=== PATIENT | male | born 1965 | race Caucasian/White ===

== ENCOUNTER 2018-06-12 15:09 | Inpatient (IN) | payer OTHER ==
[2018-06-12] MEDS ORDERED: NITROGLYCERIN SL TABS 0.4 MG TAB SUBLINGUAL STA ×3 (15:39)
[2018-06-12] MEDS ORDERED: ASPIRIN 81 MG PO STA (15:39)
--- NOTE | 2018-06-12 15:44 | ED ---
General Adult HPI - General Chief complaint: Chest Pain Stated complaint: Chest pain Time Seen by Provider: 06/12/18 15:23 Source: patient, RN notes reviewed Mode of arrival: ambulatory Limitations: no limitations - History of Present Illness Initial comments: Patient is a pleasant 52-year-old male presenting to the emergency Department with complaints of chest discomfort. Onset of symptoms was prior to arrival. Patient did have some very mild symptoms prior to that over the past day or so. Discomfort has somewhat improved and is currently 5/10. Discomfort was more severe earlier. Patient was sweaty earlier. Patient denies any dyspnea however states it does worsen with deep breaths. No nausea. No history of chronic chest problems. - Related Data Home Medications Medication Instructions Recorded Confirmed No Known Home Medications 06/12/18 06/12/18 Allergies Allergy/AdvReac Type Severity Reaction Status Date / Time codeine Allergy Unknown Verified 06/12/18 15:50 Review of Systems ROS Statement: Those systems with pertinent positive or pertinent negative responses have been documented in the HPI. ROS Other: All systems not noted in ROS Statement are negative. Constitutional: Denies: fever Eyes: Denies: eye pain ENT: Denies: ear pain Respiratory: Denies: cough, dyspnea Cardiovascular: Reports: chest pain Endocrine: Denies: fatigue Gastrointestinal: Denies: abdominal pain Genitourinary: Denies: dysuria Musculoskeletal: Denies: back pain Skin: Denies: rash Neurological: Denies: weakness Past Medical History Past Medical History: No Reported History History of Any Multi-Drug Resistant Organisms: None Reported Past Surgical History: No Surgical Hx Reported Past Psychological History: Depression Smoking Status: Current every day smoker Past Alcohol Use History: Rare Past Drug Use History: Marijuana General Exam Limitations: no limitations General appearance: alert, in no apparent distress Head exam: Present: atraumatic Eye exam: Present: normal appearance, PERRL ENT exam: Present: normal oropharynx Neck exam: Present: normal inspection Respiratory exam: Present: normal lung sounds bilaterally. Absent: chest wall tenderness Cardiovascular Exam: Present: regular rate, normal rhythm Expanded Peripheral pulses: 2+: Radial (R), Radial (L), Posterior Tibialis (R), Posterior Tibialis (L) GI/Abdominal exam: Present: soft. Absent: tenderness Extremities exam: Present: normal inspection. Absent: pedal edema, calf tenderness Neurological exam: Present: alert Psychiatric exam: Present: normal affect, normal mood Skin exam: Present: normal color Course Vital Signs 06/12/18 06/12/18 06/12/18 15:18 15:25 15:47 Temperature 97.6 F 97.4 F L Pulse Rate 93 82 Respiratory 20 16 Rate Blood Pressure 126/88 135/102 144/92 O2 Sat by Pulse 99 99 100 Oximetry 06/12/18 06/12/18 06/12/18 15:57 16:00 16:30 Temperature Pulse Rate 80 Respiratory 16 14 20 Rate Blood Pressure 144/92 131/85 O2 Sat by Pulse 94 L 100 Oximetry EKG Findings - EKG Comments: EKG Findings:: Normal sinus rhythm 78. OH 156. QRS 84. QT 368. QTC 419. Normal axis. Normal QRS. No acute ST change. Medical Decision Making - Medical Decision Making Patient reevaluated. Patient states medication did help with his symptoms however they're starting to return. Patient will be provided further nitroglycerin. Case was discussed in detail with Dr. Sultana, who will admit for hospital call. Patient and family are updated on results and plan. - Lab Data Result diagrams: 06/12/18 15:37 06/12/18 15:37 Lab Results 06/12/18 06/12/18 06/12/18 Range/Units 15:37 15:37 15:37 WBC 7.9 (3.8-10.6) k/uL RBC 5.38 (4.30-5.90) m/uL Hgb 16.7 (13.0-17.5) gm/dL Hct 49.2 (39.0-53.0) % MCV 91.4 (80.0-100.0) fL MCH 31.0 (25.0-35.0) pg MCHC 33.9 (31.0-37.0) g/dL RDW 12.7 (11.5-15.5) % Plt Count 204 (150-450) k/uL Neutrophils % 51 % Lymphocytes % 36 % Monocytes % 7 % Eosinophils % 4 % Basophils % 1 % Neutrophils # 4.0 (1.3-7.7) k/uL Lymphocytes # 2.8 (1.0-4.8) k/uL Monocytes # 0.5 (0-1.0) k/uL Eosinophils # 0.3 (0-0.7) k/uL Basophils # 0.1 (0-0.2) k/uL PT (9.0-12.0) sec INR (<1.2) APTT (22.0-30.0) sec D-Dimer (<0.60) mg/L FEU Sodium 138 (137-145) mmol/L Potassium 3.7 (3.5-5.1) mmol/L Chloride 103 (98-107) mmol/L Carbon Dioxide 25 (22-30) mmol/L Anion Gap 10 mmol/L BUN 17 (9-20) mg/dL Creatinine 0.93 (0.66-1.25) mg/dL Est GFR (CKD-EPI)AfAm >90 (>60 ml/min/1.73 sqM) Est GFR (CKD-EPI)NonAf >90 (>60 ml/min/1.73 sqM) Glucose 147 H (74-99) mg/dL Calcium 9.5 (8.4-10.2) mg/dL Magnesium 1.9 (1.6-2.3) mg/dL Total Bilirubin 0.7 (0.2-1.3) mg/dL AST 22 (17-59) U/L ALT 18 L (21-72) U/L Alkaline Phosphatase 71 (38-126) U/L Total Creatine Kinase 92 (55-170) U/L CK-MB (CK-2) 0.6 (0.0-2.4) ng/mL CK-MB (CK-2) Rel Index 0.7 Troponin I <0.012 (0.000-0.034) ng/mL Total Protein 7.4 (6.3-8.2) g/dL Albumin 4.4 (3.5-5.0) g/dL 06/12/18 Range/Units 15:37 WBC (3.8-10.6) k/uL RBC (4.30-5.90) m/uL Hgb (13.0-17.5) gm/dL Hct (39.0-53.0) % MCV (80.0-100.0) fL MCH (25.0-35.0) pg MCHC (31.0-37.0) g/dL RDW (11.5-15.5) % Plt Count (150-450) k/uL Neutrophils % % Lymphocytes % % Monocytes % % Eosinophils % % Basophils % % Neutrophils # (1.3-7.7) k/uL Lymphocytes # (1.0-4.8) k/uL Monocytes # (0-1.0) k/uL Eosinophils # (0-0.7) k/uL Basophils # (0-0.2) k/uL PT 10.1 (9.0-12.0) sec INR 0.9 (<1.2) APTT 22.7 (22.0-30.0) sec D-Dimer 0.35 (<0.60) mg/L FEU Sodium (137-145) mmol/L Potassium (3.5-5.1) mmol/L Chloride (98-107) mmol/L Carbon Dioxide (22-30) mmol/L Anion Gap mmol/L BUN (9-20) mg/dL Creatinine (0.66-1.25) mg/dL Est GFR (CKD-EPI)AfAm (>60 ml/min/1.73 sqM) Est GFR (CKD-EPI)NonAf (>60 ml/min/1.73 sqM) Glucose (74-99) mg/dL Calcium (8.4-10.2) mg/dL Magnesium (1.6-2.3) mg/dL Total Bilirubin (0.2-1.3) mg/dL AST (17-59) U/L ALT (21-72) U/L Alkaline Phosphatase (38-126) U/L Total Creatine Kinase (55-170) U/L CK-MB (CK-2) (0.0-2.4) ng/mL CK-MB (CK-2) Rel Index Troponin I (0.000-0.034) ng/mL Total Protein (6.3-8.2) g/dL Albumin (3.5-5.0) g/dL - Radiology Data Radiology results: image reviewed (Chest x-ray shows no acute process) Critical Care Time Critical Care Time: Yes Total Critical Care Time: 32 Disposition Clinical Impression: Unstable angina pectoris Disposition: ADMITTED IP TO THIS [facility] Is patient prescribed a controlled substance at d/c from ED?: No Referrals: None,Stated [Primary Care Provider] - 1-2 days Decision Time: 17:32
[2018-06-12 16:00] LABS: Basophils # (A) 0.1 k/uL (0-0.2); Basophils % (A) 1 %; Eosinophils # (A) 0.3 k/uL (0-0.7); Eosinophils % (A) 4 %; HCT 49.2 % (39.0-53.0); HGB 16.7 gm/dL (13.0-17.5); Lymphocytes # (A) 2.8 k/uL (1.0-4.8); Lymphocytes % (A) 36 %; MCHC 33.9 g/dL (31.0-37.0); MCV 91.4 fL (80.0-100.0); Mean Platelet Volume 7.3; Monocytes # (A) 0.5 k/uL (0-1.0); Monocytes % (A) 7 %; Neutrophils % (A) 51 %; Platelet Count 204 k/uL (150-450); RBC 5.38 m/uL (4.30-5.90); RDW 12.7 % (11.5-15.5); WBC 7.9 k/uL (3.8-10.6)
[2018-06-12 16:11] LABS: ALT 18 U/L (21-72); AST 22 U/L (17-59); Albumin 4.4 g/dL (3.5-5.0); Alkaline Phosphatase 71 U/L (38-126); Anion Gap 10 mmol/L; Blood Urea Nitrogen 17 mg/dL (9-20); Calcium 9.5 mg/dL (8.4-10.2); Carbon Dioxide 25 mmol/L (22-30); Chloride 103 mmol/L (98-107); Glucose 147 mg/dL (74-99); Magnesium 1.9 mg/dL (1.6-2.3); Potassium 3.7 mmol/L (3.5-5.1); Sodium 138 mmol/L (137-145); Total Bilirubin 0.7 mg/dL (0.2-1.3); Total Protein 7.4 g/dL (6.3-8.2)
[2018-06-12 16:15] LABS: D-Dimer 0.35 mg/L FEU (<0.60); INR 0.9 (<1.2); Partial Thromboplastin Time 22.7 sec (22.0-30.0); Prothrombin Time 10.1 sec (9.0-12.0)
[2018-06-12 16:22] LABS: Creatine Kinase 92 U/L (55-170)
[2018-06-12 16:36] LABS: Creatine Kinase MB 0.6 ng/mL (0.0-2.4); Troponin I <0.012 ng/mL (0.000-0.034)
--- NOTE | 2018-06-12 17:02 | XR ---
EXAMINATION TYPE: XR chest 2V DATE OF EXAM: 06/12/2018 COMPARISON: NONE HISTORY: Chest pain TECHNIQUE: Frontal and lateral views of the chest are obtained. FINDINGS: Heart and mediastinum are normal. Lungs are clear. Diaphragm is normal. Pulmonary vascular ity is normal. There are chest leads. IMPRESSION: Normal chest
[2018-06-12] MEDS ORDERED: HEPARIN SODIUM,PORCINE 5,000 UNIT/ML 1 ML VIAL IV ONE (17:32)
[2018-06-12] MEDS ORDERED: HEPARIN SODIUM,PORCINE 5,000 UNIT/ML 1 ML VIAL IV PRN (17:32)
[2018-06-12] MEDS ORDERED: NITROGLYCERIN SL TABS 0.4 MG TAB SUBLINGUAL PRN (17:32)
[2018-06-12] MEDS ORDERED: MORPHINE SULFATE 2 MG/ML SYRINGE IVP STA (17:36)
[2018-06-12] MEDS ORDERED: HEPARIN SOD,PORK IN 0.45% NACL 25,000 UNIT in 0.45% NACL 1 500ML.BAG IV SCH (17:45)
[2018-06-12] MEDS: NITROGLYCERIN OINT 1 INCH/GM PACKET TOPICAL SCH ×2 (17:47→19:31)
[2018-06-12 22:50] LABS: Creatine Kinase MB 10.4 ng/mL (0.0-2.4)
[2018-06-12 22:51] LABS: Troponin I 1.89 ng/mL (0.000-0.034)
[2018-06-12] MEDS: METOPROLOL TARTRATE 25 MG TAB PO SCH (23:04)
[2018-06-12] MEDS ORDERED: ALPRAZolam 0.25 MG TAB PO PRN (23:48)
[2018-06-12] MEDS ORDERED: TEMAZEPAM 15 MG CAP PO PRN (23:48)
[2018-06-13] MEDS: NITROGLYCERIN OINT 1 INCH/GM PACKET TOPICAL SCH ×2 (00:38→04:56)
[2018-06-13 03:24] LABS: Basophils # (A) 0.1 k/uL (0-0.2); Basophils % (A) 1 %; Eosinophils # (A) 0.3 k/uL (0-0.7); Eosinophils % (A) 4 %; HCT 45.2 % (39.0-53.0); HGB 14.9 gm/dL (13.0-17.5); Lymphocytes # (A) 3.3 k/uL (1.0-4.8); Lymphocytes % (A) 37 %; MCH 30.7 pg (25.0-35.0); MCV 93.3 fL (80.0-100.0); Monocytes # (A) 0.6 k/uL (0-1.0); Monocytes % (A) 7 %; Neutrophils # (A) 4.4 k/uL (1.3-7.7); Neutrophils % (A) 50 %; Platelet Count 218 k/uL (150-450); RBC 4.85 m/uL (4.30-5.90); RDW 12.9 % (11.5-15.5); WBC 8.8 k/uL (3.8-10.6)
[2018-06-13 03:33] LABS: Anion Gap 5 mmol/L; Blood Urea Nitrogen 15 mg/dL (9-20); Calcium 8.9 mg/dL (8.4-10.2); Carbon Dioxide 25 mmol/L (22-30); Chloride 107 mmol/L (98-107); Cholesterol 179 mg/dL (<200); Glucose 113 mg/dL (74-99); HDL Cholesterol 46 mg/dL (40-60); Potassium 4.1 mmol/L (3.5-5.1); Sodium 137 mmol/L (137-145)
[2018-06-13 03:56] LABS: Creatine Kinase MB 11.8 ng/mL (0.0-2.4)
[2018-06-13 03:59] LABS: Troponin I 3.94 ng/mL (0.000-0.034)
[2018-06-13 05:18] LABS: Triglycerides 108 mg/dL (<150)
[2018-06-13] MEDS ORDERED: ASPIRIN 325 MG TAB PO STA (07:37)
[2018-06-13] MEDS ORDERED: ALPRAZolam 0.25 MG TAB PO PRN (07:37)
[2018-06-13] MEDS ORDERED: NITROGLYCERIN SL TABS 0.4 MG TAB SUBLINGUAL PRN ×2 (07:37→11:02)
[2018-06-13] MEDS ORDERED: ALPRAZolam 0.5 MG TAB PO PRN (07:37)
[2018-06-13] MEDS ORDERED: ATORVASTATIN 80 MG TAB PO STA (07:37)
[2018-06-13] MEDS ORDERED: SODIUM CHLORIDE 0.9% 1,000 ML in EMPTY BAG 1 BAG IV ONE (07:37)
[2018-06-13] MEDS: NICOTINE 14MG/24HR PATCH TRANSDERM SCH (07:51)
[2018-06-13] MEDS: PANTOPRAZOLE 40 MG TABLET PO SCH (07:54)
[2018-06-13] MEDS: METOPROLOL TARTRATE 25 MG TAB PO SCH ×2 (07:54→22:43)
[2018-06-13] MEDS ORDERED: LIDOCAINE 1% INJ 10MG/ML (20 ML MDV) ONE (09:32)
[2018-06-13] MEDS ORDERED: VERAPAMIL 2.5 MG/ML 2 ML AMP ONE (09:32)
[2018-06-13] MEDS ORDERED: HEPARIN SODIUM 1,000 UN/ML (10ML VL) ONE (09:32)
[2018-06-13] MEDS ORDERED: fentaNYL (PF) 50 MCG/ML 2 ML AMP ONE (09:32)
[2018-06-13] MEDS ORDERED: fentaNYL (PF) 50 MCG/ML 2 ML AMP IVP ONE (09:55)
[2018-06-13] MEDS ORDERED: LIDOCAINE 1% (PF) 10MG/ML VIAL SQ ONE (09:56)
[2018-06-13] MEDS ORDERED: IV FLUID CONTINUATION 950 ML IV ONE (09:57)
[2018-06-13] MEDS ORDERED: VERAPAMIL SYRINGE (5 MG/10 ML) INTRAARTER ONE (09:58)
--- NOTE | 2018-06-13 10:00 | HP ---
HISTORY AND PHYSICAL DATE OF SERVICE: 06/12/2018 CHIEF COMPLAINT: Chest pain. HISTORY OF PRESENT ILLNESS: This 52-year-old gentleman with a past medical history of no significant medical issues being followed by no primary physician in the outpatient setting, was complaining of left-sided chest pain with sweating. The pain was burning in character, also. There is no radiation of the pain elsewhere and the patient came to [facility] and was admitted for further evaluation and treatment. The initial troponin was 0.012 with subsequent troponins elevated 1.890. The initial EKG showed nonspecific ST-T changes. The patient admitted for further evaluation of treatment. Continue being followed. There is no history of fever, rigors or chills. No history of headache, loss of consciousness, or seizures. PAST MEDICAL HISTORY: No history of medical illness except depression. MEDICATIONS ARE: Prior to admission include none. ALLERGIES: CODEINE. FAMILY HISTORY: No history of heart disease or strokes in the family. SOCIAL HISTORY: History of smoking, THC, rare occasional alcohol intake. REVIEW OF SYSTEMS: ENT: No diminished vision or hearing. CARDIOVASCULAR: As mentioned earlier. GI: No nausea. : No dysuria. NERVOUS SYSTEM: No numbness or weakness. ALLERGY/IMMUNOLOGY: No asthma or hayfever. MUSCULOSKELETAL: As mentioned earlier. HEMATOLOGY: No history of anemia. ENDOCRINE: No history of diabetes or hypothyroidism. CONSTITUTIONAL: As mentioned earlier. DERMATOLOGY: Negative. RHEUMATOLOGY: Negative. PSYCHIATRY: As mentioned earlier. PHYSICAL EXAMINATION: Alert and oriented x3. Pulse is 63, blood pressure 124/80, respirations 16, temperature 97.4, pulse ox 94% on room air. HEENT: Conjunctivae normal, oral mucosa moist. CARDIOVASCULAR: S1, S2, muffled. RESPIRATION: Breath sounds diminished at the bases, a few scattered rhonchi, no crackles. ABDOMEN: Soft, nontender. No mass palpable. LEGS: No edema, no swelling. NERVOUS SYSTEM: Higher functions as mentioned earlier, moves all four limbs. No focal deficits. LYMPHATICS: No ulcer, no rash, no bleeding. LABS: CBC within normal. Troponin 1.890. CK is 192. ASSESSMENT: 1. Chest pain, possible acute non ST elevation myocardial infarction. 2. Troponin 1.890. 3. Major depression. 4. History of nicotine dependence. RECOMMENDATION: In this 52-year-old gentleman who presented with multiple medical issues, at this time I recommend to continue with acute coronary syndrome protocol, Cardiology consultation, possible cardiac cath. Guarded prognosis because of multiple complex medical issues. I would also recommend smoking cessation. Follow with primary physician in the outpatient setting. Prognosis guarded. Further recommendations to follow. JUAN / JUAN CN: [id number] /
[2018-06-13] MEDS ORDERED: TICAGRELOR 90 MG TAB ONE (10:11)
[2018-06-13] MEDS ORDERED: BIVALIRUDIN 250 MG in SODIUM CHLORIDE 0.9% 40 ML IV ONE (10:12)
[2018-06-13] MEDS ORDERED: BIVALIRUDIN BOLUS 250 MG/50 ML IV ONE (10:12)
[2018-06-13] MEDS ORDERED: TICAGRELOR 90 MG TAB PO ONE (10:13)
[2018-06-13] MEDS: NITROGLYCERIN 1000MCG/10ML SYRINGE INTRACORON ONE ×2 (10:20→10:31)
[2018-06-13] MEDS ORDERED: IOPAMIDOL-370 125ML BTL INJ ONE (10:22)
--- NOTE | 2018-06-13 10:27 | CONS ---
CONSULTATION Mr. Ramon is a 52-year-old male who does not follow with a physician on a regular basis, who presented to the emergency room with symptoms of chest discomfort that occurred at rest associated with nausea. The patient is not very active physically, has a history of chronic tobacco and marijuana use. According to him, he has no prior documented history of coronary disease, although he has not seen a physician in a long time. He denies any history of significant change in his breathing. No peripheral edema. No dizziness. No palpitation. No syncope. No PND, orthopnea, or peripheral edema. His coronary risk factors are remarkable for smoking. He has no documented history of hypertension, hyperlipidemia, or diabetes mellitus. MEDICATION: At home are none. REVIEW OF SYSTEMS: RESPIRATORY system: He has no document history of obstructive lung disease. He denies any recent cough or fever. GI system: No recent GI bleeding. No peptic ulcer disease. system: No dysuria or hematuria. Nervous system: No stroke or seizure. PHYSICAL EXAMINATION: A 52-year-old male, alert, oriented, in no apparent distress. Blood pressure 106/90 with a heart rate in the 50s. HEAD: Normocephalic. Eyes sclerae anicteric. Neck good upstroke. No bruit. No jugular venous distention. Lungs clear to auscultation. HEART: Regular rhythm S1, S2. No S3. No S4. No rub. ABDOMEN: Soft, nontender. Positive bowel sounds. No organomegaly. EXTREMITIES: No edema. Intact distal pulses. LAB DATA: Lab data revealed troponin less than 0.012, 1.89, 3.9. Cholesterol 179. BUN and creatinine 15 and 0.86. Hemoglobin of 14.9. EKG revealed a sinus mechanism, normal axis, with T-wave inversion in lead 3 with QRS pattern in lead 3. Chest x-ray shows no acute infiltrate. IMPRESSION: 1. Non ST-segment elevation myocardial infarction. 2. Chronic tobacco use. 3. Chronic marijuana use. RECOMMENDATION: I have recommend proceeding with coronary angiography to assess his status and guide his treatment. The rationale behind the procedure, its risks and complications were discussed with the patient who is in full understanding and agreement. An echocardiogram with Doppler will be obtained and depending on his progress, further recommendation will be made. Thank you for this consult. We will follow with you. MMODL / IJN: [id number] /
[2018-06-13] MEDS ORDERED: IOPAMIDOL-370 100ML BTL INJ ONE (10:37)
[2018-06-13] MEDS ORDERED: IOPAMIDOL-370 50ML BTL INJ ONE (10:37)
[2018-06-13] MEDS ORDERED: MIDAZOLAM 2 MG/2 ML VIAL IV ONE (10:43)
[2018-06-13] MEDS ORDERED: MAG HYDROX/AL HYDROX/SIMETH 30 ML CUP PO PRN (11:02)
[2018-06-13] MEDS ORDERED: ATROPINE SULFATE 0.1 MG/ML 10ML SYRINGE IV PRN (11:02)
[2018-06-13] MEDS ORDERED: RX INFO: IV CONTRAST WAS GIVEN 1 EACH MISC MISCELLANE PRN (11:02)
[2018-06-13] MEDS ORDERED: SODIUM CHLORIDE 0.9% 1,000 ML IV SCH (11:15)
--- NOTE | 2018-06-13 11:36 | CC ---
CARDIAC CATHETERIZATION REPORT Mr. Ramon is a 52-year-old male who does not follow with a physician, who presented with symptoms of chest discomfort and had no significant EKG changes, but there was evidence of non ST-segment elevation myocardial infarction with abnormal troponin. In view of that, recommendation made regarding cardiac catheterization the procedures risks and complications were discussed with the patient who is in full understanding and agreement. PROCEDURE: Patient was brought to engineer geophysical laboratory in a fasting semi-sedated state after receiving fentanyl and Benadryl and achieving moderate conscious sedated state. Using Xylocaine anesthesia and Seldinger technique, a 6-Yi sheath was introduced in the right radial artery. Selective right and left coronary angiography was performed using 5- Yi 3.5 bend right and left Iban catheter, multiple views of the coronary artery including hemiaxial views were obtained. Following that, angioplasty and stenting was performed. Following that. a 5-Yi tight pigtail catheter was introduced in the left ventricle and a 30 degree ORDONEZ view of the left ventricle was obtained. Following that, the catheter were removed, images of the stented segment were performed using the guiding catheter. Subsequently, catheter and sheath were removed. Hemostasis was obtained with deployment of a TR band. There was no immediate complication. Patient was returned to his room in stable condition. FINDINGS: LEFT MAIN: This is a short size vessel, bifurcating into left circumflex, left anterior descending artery. Left main coronary artery has no evidence of high-grade stenosis. LEFT ANTERIOR DESCENDING ARTERY: This is a large-sized vessel, reaching toward the apex with a wraparound apex segment, giving rise to a diagonal branch in the mid segment. That vessel is a branching vessel, one of the branches has an area of stenosis of about 70% at the takeoff. The rest of the vessel has no high-grade stenosis. The LAD in the mid segment has an eccentric 70% stenosis prior to that. There is area of calcification with no evidence of high-grade stenosis. LEFT CIRCUMFLEX: This is a codominant vessel, giving rise to a large first obtuse marginal branch that has a 99% stenosis distally bifurcating PDA and posterolateral single branches. The rest of the vessel has no high-grade stenosis. RIGHT CORONARY ARTERY: This is a small nondominant vessel, that has no evidence of high-grade stenosis. LEFT VENTRICULOGRAM: Left ventriculogram was performed in 30 degree ORDONEZ view and revealed a normal left ventricular size. There was mild mid anterior wall hypokinesis. Ejection fraction 50%. There was no significant mitral regurgitation. HEMODYNAMICS: There was no gradient across the aortic valve. The left ventricular end- diastolic pressure was 12 mmHg. CONCLUSION: 1. Significant stenosis in the first obtuse marginal branch. 2. Significant stenosis in the mid left anterior descending artery. 3. Significant stenosis in a branching point of a diagonal branch. The vessel beyond that is small in caliber. 4. Minimally impaired left ventricular systolic function. RECOMMENDATION: In view of finding anatomy, recommend proceeding with angioplasty and stenting. The procedures risks and complication were discussed with the patient who is in full understanding and agreement. MMODL / IJN: [id number] /
--- NOTE | 2018-06-13 11:48 | PTCA ---
PERCUTANEOUSTRANS CORORONARY ANGIOGRAPHY Mr. Ramon is a 52-year-old male who does not follow with a physician on a regular basis, who presented with evidence of non ST-segment elevation myocardial infarction. He had cardiac catheterization for critical stenosis in the first obtuse marginal branch and the mid LAD. Recommendation was made regarding angioplasty and stenting. The procedures, risks and complication were discussed with the patient who is in full understanding and agreement. PROCEDURE: A 6-Danish FL 3.5 guiding catheter was introduced into the system after cannulating the left main. A 0.014 balanced medium weight J-wire was advanced, positioned in the first obtuse marginal branch. Attempt to advance the 3.0 x 18 mm Xience Yajaira stent were unsuccessful. That stent was removed and a 2.5 x 12 mm Trek balloon was advanced and one inflation at 8 atmospheres was done. Following that, the balloon was removed and the stent was advanced, deployed and post-dilated at 14 atmospheres. After the last inflation, after appropriate wait, the balloon and the guidewire were withdrawn back in the guiding catheter. Images were obtained and repeated. Those images reveal stable successful stenting. At that point, the wire was advanced into the LAD, positioned distally and a 3.0 x 12 mm Xience Yajaira stent was advanced, deployed and post-dilated to 16 atmospheres. After the last inflation, after appropriate wait, the balloon and the guidewire were withdrawn back in the guiding catheter. Images were obtained and repeated. Those images reveal stable successful stenting. At that point, the guiding catheter, the balloon and the guidewire were removed. A left ventriculogram was performed. Following that, because of symptoms of discomfort in the arm, the guiding catheter was reintroduced and images of both stents were performed and revealed no evidence of significant abnormality. At that point, the guiding catheter was removed. The sheath was removed. Hemostasis was obtained with deployment of a TR band. There was no immediate complication. Patient is returned to his room in stable condition. Of note, the patient received Angiomax per protocol as well as oral loading dose of Brilinta. He had EKG changes and chest discomfort with the inflation of the LAD, that resolved at the end of the procedure. RESULTS: 1. Successful stenting of the first obtuse marginal branch with reduction of stenosis from 99% to 0%. 2. Successful stenting of the mid LAD with reduction of stenosis from 70% to 0%. RECOMMENDATION: Patient will be continued on aspirin, Brilinta, beta blockers and statin. The importance of dual antiplatelet treatment were discussed with the patient and he was in full understanding and agreement. JUAN / LAURA: [id number] /
[2018-06-13] MEDS ORDERED: SODIUM CHLORIDE 0.9% 1,000 ML IV ONE (12:52)
[2018-06-13 13:16] VITALS: RESP 16
--- NOTE | 2018-06-13 13:42 | P.PN ---
Subjective This is a pleasant 52 years old male with no significant past medical history presents with chest pain found with elevated troponin. Patient has been already evaluated by investigator cash shortage and underwent cardiac cath showing significant stenosis in several arteries including first obtuse, mid left anterior descending artery, branching point of the gonadal branch with minimally impaired left ventricular systolic function. And the plan is for cardiac stenting. on admission his EKG showing 78 bpm normal sinus rhythm, with no significant ST-T changes. Patient was seen today in the extending to stay unit. He was chest pain-free with no dyspnea. No abdominal or urinary complaints. Objective - Vital Signs Vital signs: Vital Signs Temp 97.8 F 06/13/18 07:05 Pulse 52 L 06/13/18 08:00 Resp 18 06/13/18 08:00 BP 106/92 06/13/18 07:05 Pulse Ox 96 06/13/18 07:05 Intake & Output 06/12/18 06/13/18 06/13/18 18:59 06:59 18:59 Intake Total 123.19 535 Balance 123.19 535 Weight 62.2 kg 62.2 kg Intake: IV 535 Intake, IV Titration 123.19 Amount Heparin Sod,Pork in 0.45% 123.19 NaCl 25,000 unit In 0.45 % NaCl 1 500ml.bag @ 12 UNITS/KG/HR 15.24 mls/hr IV .Q24H [facility] Rx#: [id number] Other: Voiding Method Toilet # Voids 2 - Exam GENERAL: The patient is alert and oriented x3, not in any acute distress. Well developed, well nourished. HEENT: Pupils are round and equally reacting to light. EOMI. No scleral icterus. No conjunctival pallor. Normocephalic, atraumatic. No pharyngeal erythema. No thyromegaly. CARDIOVASCULAR: S1 and S2 present. No murmurs, rubs, or gallops. PULMONARY: Chest is clear to auscultation, no wheezing or crackles. ABDOMEN: Soft, nontender, nondistended, normoactive bowel sounds. No palpable organomegaly. MUSCULOSKELETAL: No joint swelling or deformity. EXTREMITIES: No cyanosis, clubbing, or pedal edema. NEUROLOGICAL: Gross neurological examination did not reveal any focal deficits. SKIN: No rashes. - Labs CBC & Chem 7: 06/13/18 03:09 06/13/18 03:09 Labs: Abnormal Lab Results - Last 24 Hours (Table) 06/12/18 06/12/18 06/13/18 Range/Units 15:37 21:27 00:22 APTT 33.1 H (22.0-30.0) sec Glucose 147 H (74-99) mg/dL ALT 18 L (21-72) U/L Total Creatine Kinase 192 H (55-170) U/L CK-MB (CK-2) 10.4 H (0.0-2.4) ng/mL Troponin I 1.890 H* (0.000-0.034) ng/mL 06/13/18 06/13/18 Range/Units 03:09 03:09 APTT (22.0-30.0) sec Glucose 113 H (74-99) mg/dL ALT (21-72) U/L Total Creatine Kinase 231 H (55-170) U/L CK-MB (CK-2) 11.8 H (0.0-2.4) ng/mL Troponin I 3.940 H* (0.000-0.034) ng/mL Assessment and Plan Assessment: None STEMI Status post cardiac cath showing cerebral artery stenosis, planned for stenting Asymptomatic bradycardia Plan: This is a pleasant 52 years old male who presents with chest pain found to have been STEMI, with several coronary artery diseases. Cardiology are following the patient's with cardiac catheterization. Patient already on Brilinta, and aspirin. Labs and medication were reviewed.. Continue same treatment. Continue with symptomatic treatment. Resume home medication. Monitor lytes and vitals. DVT and GI prophylaxis. Further recommendations of the clinical course of the patient Prognosis is guarded
[2018-06-13] MEDS ORDERED: HYDROmorphone 1 MG/ML 1 ML SYRINGE IVP STA (16:00)
[2018-06-13] MEDS ORDERED: HYDROmorphone 1 MG/ML 1 ML SYRINGE ONE (16:03)
--- NOTE | 2018-06-13 16:49 | CT ---
EXAMINATION TYPE: CT brain wo con DATE OF EXAM: 06/13/2018 COMPARISON: None HISTORY: Right sided headache. CT DLP: 889.1 mGycm Automated exposure control for dose reduction was used. FINDINGS: Ventricles and sulci appear normal. There is no mass effect nor midline shift. There is no sign of in tracranial hemorrhage. I see no evidence of cerebral edema. Calvarium is intact. IMPRESSION: NEGATIVE HEAD CT SCAN.
[2018-06-13] MEDS ORDERED: hydrALAZINE HCL 25 MG TAB PO STA (18:03)
[2018-06-13] MEDS ORDERED: ONDANSETRON 4 MG/2 ML VIAL IVP PRN (18:03)
[2018-06-13] MEDS ORDERED: HYDROmorphone 1 MG/ML 1 ML SYRINGE IVP PRN (18:04)
[2018-06-13] MEDS ORDERED: FAMOTIDINE 20 MG/2 ML VIAL IV SCH (21:00)
[2018-06-13] MEDS ORDERED: ZOLPIDEM 5 MG TAB PO PRN (21:00)
[2018-06-13] MEDS: FAMOTIDINE 20 MG TAB PO SCH (22:42)
[2018-06-13] MEDS: TICAGRELOR 90 MG TAB PO SCH (22:43)
--- NOTE | 2018-06-14 06:43 | ECHOF ---
Referral Reason:cp MEASUREMENTS -------- HEIGHT: 177.8 cm WEIGHT: 62.1 kg BP: 106/92 RVIDd: 2.3 cm (< 3.3) IVSd: 0.8 cm (0.6 - 1.1) LVIDd: 4.7 cm (3.9 - 5.3) LVPWd: 0.9 cm (0.6 - 1.1) IVSs: 1.1 cm LVIDs: 3.6 cm LVPWs: 1.1 cm LAESV Index (A-L): 17.91 ml/m Ao Diam: 2.7 cm (2.0 - 3.7) AV Cusp: 1.5 cm (1.5 - 2.6) LA Diam: 1.6 cm (2.7 - 3.8) EPSS: 0.4 cm MV E Jonathan: 0.64 m/s MV DecT: 253 ms MV A Jonathan: 0.73 m/s MV E/A Ratio: 0.88 MV EF SLOPE: 148.61 mm/s (70 - 150) MV EXCURSION: 2.34 cm (> 18.000) FINDINGS -------- Sinus rhythm. This was a technically good study. The left ventricular size is normal. Left ventricular wall thickness is normal. Overall left vent ricular systolic function is low-normal with, an EF between 50 - 55 %. The right ventricle is normal in size and function. Normal LA size by volume 22+/-6 ml/m2. The right atrium is normal in size. The aortic valve is trileaflet, and appears structurally normal. No aortic stenosis or regurgitation. The mitral valve is normal. There is trace to mild mitral regurgitation. Trace tricuspid regurgitation present. Right ventricular systolic pressure is normal at < 35 mmHg. The right ventricular systolic pressure, as measured by Doppler, is {RVSP}. The pulmonic valve was not well visualized. There is no pulmonic regurgitation present. The aortic root size is normal. Normal inferior vena cava with normal inspiratory collapse consistent with estimated right atrial pre ssure of 5 mmHg. There is no pericardial effusion. CONCLUSIONS -------- 1. Sinus rhythm. 2. This was a technically good study. 3. The left ventricular size is normal. 4. Left ventricular wall thickness is normal. 5. Overall left ventricular systolic function is low-normal with, an EF between 50 - 55 %. 6. Normal LA size by volume 22+/-6 ml/m2. 7. The aortic valve is trileaflet, and appears structurally normal. No aortic stenosis or regurgitati on. 8. There is trace to mild mitral regurgitation. 9. Trace tricuspid regurgitation present. 10. Right ventricular systolic pressure is normal at < 35 mmHg. 11. The pulmonic valve was not well visualized. 12. There is no pulmonic regurgitation present. 13. The aortic root size is normal. 14. There is no pericardial effusion. LEAD POURER: Gray Kaye RDCS
[2018-06-14] MEDS: PANTOPRAZOLE 40 MG TABLET PO SCH (06:59)
[2018-06-14 07:37] LABS: Mean Platelet Volume 6.8; Platelet Count 193 k/uL (150-450)
[2018-06-14 07:50] LABS: Anion Gap 7 mmol/L; Blood Urea Nitrogen 9 mg/dL (9-20); Carbon Dioxide 26 mmol/L (22-30); Chloride 108 mmol/L (98-107); Glucose 91 mg/dL (74-99); Sodium 141 mmol/L (137-145)
[2018-06-14] MEDS: METOPROLOL TARTRATE 25 MG TAB PO SCH (08:46)
[2018-06-14] MEDS: FAMOTIDINE 20 MG TAB PO SCH (08:46)
[2018-06-14] MEDS: TICAGRELOR 90 MG TAB PO SCH (08:47)
[2018-06-14] MEDS: NICOTINE 14MG/24HR PATCH TRANSDERM SCH (08:47)
[2018-06-14] MEDS ORDERED: ASPIRIN 81 MG PO SCH (09:00)
[2018-06-14] MEDS ORDERED: ASPIRIN 325 MG TAB PO SCH (09:00)
--- NOTE | 2018-06-14 09:30 | PN ---
PROGRESS NOTE Mr. Ramon is a 52-year-old male who presented with symptoms of chest discomfort and evidence of non ST-segment elevation myocardial infarction underwent stenting of his LAD as well as his obtuse marginal branch. He is doing well this morning, ambulating without difficulty. Denying any chest pain. No dizziness. No palpitation. He had some headache that is improving. He continued be on aspirin once a day, Lipitor 80 mg daily, metoprolol tartrate 25 mg twice a day, Brilinta 90 mg twice a day. PHYSICAL EXAMINATION: Blood pressure 123/70 with the heart rate in the 70s. LUNGS: Clear. HEART: Regular rate and rhythm S1, S2. No S3. No rub. ABDOMEN: Soft, nontender. EXTREMITIES: No edema. Right radial pulse intact. LAB DATA: Lab data revealed BUN and creatinine 9 and 0.72. Potassium 4.0. Platelet count of 193. IMPRESSION: 1. Status post stenting of the left anterior descending artery and the obtuse marginal branch. 2. Non ST-segment elevation myocardial infarction. 3. History of chronic tobacco use. RECOMMENDATION: Patient will be discharged home today and followed as an outpatient. The importance of smoking cessation was discussed with the patient. MMODL / IJN: [id number] /
[2018-06-14 12:57] VITALS: BP 117/68; PULSE 69; TEMP 97.6
[2018-06-14 14:48] VITALS: BMI 19.6
[2018-06-14] MEDS ORDERED: ATORVASTATIN 80 MG TAB PO SCH (21:00)
== END 2018-06-14 15:09 | disposition home or self-care (01) | DRG 247 ==
LOC: EC 15:09 → 1SOBS 17:34 → 3SCARD 06-13 10:19 → OBSVTOIN 06-13 14:01 → 3SCARD 06-13 15:53
PROVIDERS: ADMIT Internal Medicine; ATTEND Internal Medicine
PROC: B2151ZZ Fluoroscopy of Left Heart using Low Osmolar Contrast (ICD-10-PCS; 2018-06-13)
PROC: 027034Z Dilation of Coronary Artery, One Artery with Drug-eluting Intraluminal Device, Percutaneous Approach (ICD-10-PCS; principal; 2018-06-13 09:25)
PROC: 4A023N7 Measurement of Cardiac Sampling and Pressure, Left Heart, Percutaneous Approach (ICD-10-PCS; 2018-06-13 09:25)
PROC: B2111ZZ Fluoroscopy of Multiple Coronary Arteries using Low Osmolar Contrast (ICD-10-PCS; 2018-06-13 09:25)
DX: I21.4 Non-ST elevation (NSTEMI) myocardial infarction (principal); F32.9 Major depressive disorder, single episode, unspecified; F17.200 Nicotine dependence, unspecified, uncomplicated; I25.110 Atherosclerotic heart disease of native coronary artery with unstable angina pectoris; Z88.5 Allergy status to narcotic agent
CPT/HCPCS: 36415; 70450; 71046; 80048; 80053; 82465; 82550; 82553; 83718; 83735; 84478; 84484; 85025; 85049; 85347; 85379; 85610; 85730; 93005; 93306; 93458; 96374; 96375; 99291; C1874

== ENCOUNTER → 2018-07-12 | Outpatient (CLI) | payer OTHER ==
[2018-07-12 11:40] LABS: Albumin 4.6 g/dL (3.80-4.90); Albumin/Globulin Ratio 2.42 (1.20-2.10); Anion Gap 7.1 mmol/L (4.00-12.00); Calcium 9.4 mg/dL (8.7-10.3); Carbon Dioxide 27.9 mmol/L (21.6-31.8); Globulin 1.9 g/dL (1.6-3.3); LDL Cholesterol,Calculated 42.8 mg/dL (0.0-131.0); Potassium 4.2 mmol/L (3.5-5.5); Total Bilirubin 0.6 mg/dL (0.3-1.2); Total Protein 6.5 g/dL (6.2-8.2); VLDL Calculation 14.2 mg/dL (5.00-40.00)
== END ==
LOC: LABWHC1 07:06
PROVIDERS: ATTEND Internal Medicine Interventional Cardiology
DX: E78.2 Mixed hyperlipidemia (principal)
CPT/HCPCS: 36415; 80053; 80061

== ENCOUNTER → 2019-04-28 | Outpatient (CLI) | payer OTHER ==
[2019-04-28 07:59] LABS: HCT 46.4 % (39.0-53.0); HGB 16.3 gm/dL (13.0-17.5); MCH 32.5 pg (25.0-35.0); MCHC 35.1 g/dL (31.0-37.0); MCV 92.7 fL (80.0-100.0); Mean Platelet Volume 6.3; Platelet Count 215 k/uL (150-450); RDW 12.4 % (11.5-15.5); WBC 6.4 k/uL (3.8-10.6)
[2019-04-28 08:26] LABS: ALT 33 U/L (21-72); AST 27 U/L (17-59); African American GFR (CKD) >90 (>60 ml/min/1.73 sqM); Albumin 4.3 g/dL (3.5-5.0); Alkaline Phosphatase 77 U/L (38-126); Anion Gap 10 mmol/L; Blood Urea Nitrogen 15 mg/dL (9-20); Calcium 9.4 mg/dL (8.4-10.2); Carbon Dioxide 25 mmol/L (22-30); Chloride 106 mmol/L (98-107); Glucose 109 mg/dL (74-99); Potassium 4.3 mmol/L (3.5-5.1); Sodium 141 mmol/L (137-145); Total Bilirubin 0.8 mg/dL (0.2-1.3); Total Protein 7.2 g/dL (6.3-8.2)
== END | disposition home or self-care (01) ==
LOC: LABPAT 07:24
PROVIDERS: ATTEND Internal Medicine Interventional Cardiology
DX: Z01.812 Encounter for preprocedural laboratory examination (principal); I25.10 Atherosclerotic heart disease of native coronary artery without angina pectoris
CPT/HCPCS: 80053; 85027

== ENCOUNTER → 2019-04-28 | Outpatient (CLI) | payer OTHER ==
[2019-04-28 11:44] LABS: Chol/HDL Ratio 2.6; LDL Cholesterol,Calculated 45.4 mg/dL (0.0-131.0); VLDL Calculation 18.6 mg/dL (5.00-40.00)
== END | disposition home or self-care (01) ==
LOC: LABWHC1 07:23
PROVIDERS: ATTEND Internal Medicine Interventional Cardiology
DX: E78.2 Mixed hyperlipidemia (principal)
CPT/HCPCS: 36415; 80061

== ENCOUNTER → 2019-05-04 | Day surgery (SDC) | payer OTHER ==
[2019-05-02 10:42] VITALS: BMI 20.3
[~2019-05-04] MED LIST: ALPRAZolam 0.25 MG TAB PO PRN; ALPRAZolam 0.5 MG TAB PO PRN; ASPIRIN 325 MG TAB PO STA; ASPIRIN 81 MG PO SCH; ATORVASTATIN 80 MG TAB PO SCH; ATORVASTATIN 80 MG TAB PO STA; HEPARIN SODIUM 1,000 UN/ML (10ML VL) ONE; IOPAMIDOL-370 125ML BTL INJ ONE; LIDOCAINE 1% INJ 10MG/ML (20 ML MDV) ONE; LIDOCAINE 1% INJ 10MG/ML (20 ML MDV) SQ ONE; METOPROLOL TARTRATE 25 MG TAB PO SCH; NITROGLYCERIN 1000MCG/10ML SYRINGE INTRACORON ONE; NITROGLYCERIN SL TABS 0.4 MG TAB SUBLINGUAL PRN; RX INFO: IV CONTRAST WAS GIVEN 1 EACH MISC MISCELLANE PRN; SODIUM CHLORIDE 0.9% 1,000 ML IV SCH; SODIUM CHLORIDE 0.9% 1,000 ML in EMPTY BAG 1 BAG IV ONE; TICAGRELOR 90 MG TAB PO SCH; VERAPAMIL 2.5 MG/ML 2 ML AMP ONE; fentaNYL (PF) 50 MCG/ML 2 ML AMP IVP ONE; fentaNYL (PF) 50 MCG/ML 2 ML AMP ONE
[2019-05-04 06:56] VITALS: RESP 18; TEMP 97.7
[2019-05-04 12:26] VITALS: PULSE 48
[2019-05-04 14:16] VITALS: BP 144/75
--- NOTE | 2019-05-04 14:34 | CC ---
CARDIAC CATHETERIZATION REPORT Mr. Ramon is a 53-year-old male with known history of coronary artery disease who in June 2018, underwent stenting of the LAD and left circumflex, presented with some symptoms of chest discomfort on and off. In view of that, recommendation made regarding cardiac catheterization. The procedures, risks, and complications were discussed with the patient who is in full understanding and agreement. PROCEDURE: Patient was brought to cath lab nurse in a fasting semi-sedated state after receiving fentanyl and Benadryl and achieving moderate conscious sedated state. Using Xylocaine anesthesia and Seldinger technique, a 6-Israeli sheath was introduced in the right radial artery with some difficulty. There was no good blood flow return. At that point, the catheter were removed and hemostasis was obtained with deployment of TR band and using Xylocaine anesthesia and Seldinger technique, a 6-Israeli sheath was introduced in the right femoral artery. Selective right and left coronary angiography performed using 6-Israeli, 4 bend, right and left Iban catheter, multiple views of the coronary artery including hemiaxial views obtained. Following that the instantaneous flow reserve was measured. Following that 6-Israeli tight pigtail catheter was introduced into the left ventricle and pressures were calculated. Following that, catheter and sheath were removed. Hemostasis was obtained with deployment of an Angio-Seal. There was no immediate complication. Patient is returned to his room in stable condition. Of note, the patient received 5000 units of intravenous heparin. FINDINGS: 1. LEFT MAIN: This is a short size vessel bifurcating into left circumflex, left anterior descending artery. Left main coronary artery has no evidence of high- grade stenosis. 2. LEFT ANTERIOR DESCENDING ARTERY: This is a large-sized vessel, reaching toward the apex with a wraparound apex segment. The stented segment in the mid LAD is patent with no evidence of significant restenosis. Proximally at the takeoff of the first diagonal branch, there is an eccentric 40% plaque. The first diagonal branch is small in caliber and has two branches, one of the branches have 80% stenosis, but the branch is small in caliber. 3. LEFT CIRCUMFLEX: This is a large dominant vessel, giving rise to two obtuse marginal branches and distally giving rise to a PDA. The first obtuse marginal branch is a stented branch. That branch in the proximal area has a 50% plaque. The rest of the vessel has no high-grade stenosis. 4. RIGHT CORONARY ARTERY: This is a small nondominant vessel that has no evidence of high-grade stenosis. 5. LEFT VENTRICULOGRAM: Left ventriculogram was not performed. 6. HEMODYNAMICS: There was no gradient across the aortic valve. The left ventricular end-diastolic pressure was 8 to 10 mmHg. 7. IFR TO THE IS THE LEFT CIRCUMFLEX: Using a 6-Israeli FL4 guiding catheter was 1.0, and IFR to the LAD was 0.96. CONCLUSION: 1. Moderate disease in the left circumflex and the left anterior descending artery with normal IFR on both vessels to nondominant right. 2. Significant disease in the first small diagonal branch, unchanged since 2018. RECOMMENDATION: In view of finding anatomy, I recommend continue medical therapy with aggressive coronary risk modifications being initiated. Those findings and recommendations were discussed with the patient who is in full understanding and agreement. Duration of procedure is 54 minutes. JUAN / JUAN CN: [id number] /
== END | disposition home or self-care (01) ==
LOC: CATHCVL 06:27
PROVIDERS: ATTEND Internal Medicine Interventional Cardiology
DX: I25.110 Atherosclerotic heart disease of native coronary artery with unstable angina pectoris (principal); I10 Essential (primary) hypertension; F17.210 Nicotine dependence, cigarettes, uncomplicated; E78.2 Mixed hyperlipidemia; E78.00 Pure hypercholesterolemia, unspecified; I25.2 Old myocardial infarction; Z95.5 Presence of coronary angioplasty implant and graft; Z79.02 Long term (current) use of antithrombotics/antiplatelets; Z79.82 Long term (current) use of aspirin; Z79.899 Other long term (current) drug therapy; Z88.5 Allergy status to narcotic agent
CPT/HCPCS: 93571; 93458; C1760; C1887; C1894; C1769; J2001; J3010; Q9967

== ENCOUNTER 2020-10-17 13:33 | Inpatient (IN) | payer OTHER ==
--- NOTE | 2020-10-17 13:38 | ED ---
General Adult HPI - General Source: patient, RN notes reviewed Mode of arrival: ambulatory Limitations: no limitations <Ruslan Willis - Last Filed: 10/17/20 13:36> <Kannan Mitchell - Last Filed: 10/17/20 16:27> - General Stated complaint: Chest Pain Time Seen by Provider: 10/17/20 13:36 - History of Present Illness Initial comments: This a 55-year-old male presents emergency Department with chief complaint of chest pain. States he states he has left-sided chest pain started this morning he states that he is attempting to drive earlier which worsen came home took a nitro alleviated some of his pain he states he lay down and got back up his the pain worsened shortly after. Patient had a myocardial infarction in 2018 with stent placement. Patient is a daily smoker. Patient does take Lipitor, Brillinta, metoprolol, aspirin. (Ruslan Willis) This a 55-year-old male who presents to the emergency department complaining of chest pain that radiates down his left arm. Patient also states he short of breath. Patient states it started at 8:00 this morning and hasn't let up. Patient states she's had 2 stents in the past. He is a smoker and continues to smoke. Patient denies diabetes. Patient states he hasn't been feeling well for the last day and he did get exposed to cold from his daughter. Patient denies any fever or chills. Patient denies any palpitations. Patient denies abdominal pain patient denies nausea vomiting or diarrhea. Patient denies any diaphoretic episodes. Patient denies headache patient denies numbness weakness. (Kannan Mitchell) - Related Data Home Medications Medication Instructions Recorded Confirmed Isosorbide Mononitrate ER [Imdur] 30 mg PO DAILY 10/17/20 10/17/20 Nitroglycerin Sl Tabs [Nitrostat] 0.4 mg SL Q5M PRN 10/17/20 10/17/20 QUEtiapine [SEROquel] 50 mg PO HS 10/17/20 10/17/20 Previous Rx's Medication Instructions Recorded Aspirin 81 mg PO DAILY chew 06/14/18 Atorvastatin [Lipitor] 80 mg PO HS #90 tab 06/14/18 Metoprolol Tartrate [Lopressor] 25 mg PO BID #180 tab 06/14/18 Allergies Allergy/AdvReac Type Severity Reaction Status Date / Time codeine Allergy Rash/Hives Verified 10/17/20 16:18 Review of Systems ROS Other: All systems not noted in ROS Statement are negative. <Ruslan Willis - Last Filed: 10/17/20 13:36> ROS Other: All systems not noted in ROS Statement are negative. <Kannan Mitchell - Last Filed: 10/17/20 16:27> ROS Statement: Those systems with pertinent positive or pertinent negative responses have been documented in the HPI. Past Medical History Past Medical History: Hyperlipidemia, Hypertension, Myocardial Infarction (IA), Osteoarthritis (OA) Last Myocardial Infarction Date:: 06/22/18 History of Any Multi-Drug Resistant Organisms: None Reported Past Surgical History: Heart Catheterization With Stent, Tonsillectomy Past Anesthesia/Blood Transfusion Reactions: No Reported Reaction Date of Last Stent Placement:: 06/22/18 Past Psychological History: Depression Past Alcohol Use History: None Reported Additional Past Alcohol Use History / Comment(s): smokes 1/2 ppd since age 11 Past Drug Use History: Marijuana Additional Drug Use History / Comment(s): uses marijuana daily -informed to refrain from use for at least 24 hours prior to procedure - Past Family History Father Family Medical History: Cancer <Ruslan Willis - Last Filed: 10/17/20 13:36> General Exam <Kannan Mitchell - Last Filed: 10/17/20 16:27> - General Exam Comments Initial Comments: GENERAL: Patient is well-developed and well-nourished. Patient is nontoxic and well- hydrated and is in mild distress. ENT: Neck is soft and supple. No significant lymphadenopathy is noted. Oropharynx is clear. Moist mucous membranes. Neck has full range of motion without eliciting any pain. EYES: The sclera were anicteric and conjunctiva were pink and moist. Extraocular movements were intact and pupils were equal round and reactive to light. Eyelids were unremarkable. PULMONARY: Unlabored respirations. Good breath sounds bilaterally. No audible rales rhonchi or wheezing was noted. CARDIOVASCULAR: There is a regular rate and rhythm without any murmurs gallops or rubs. ABDOMEN: Soft and nontender with normal bowel sounds. SKIN: Skin is clear with no lesions or rashes and otherwise unremarkable. NEUROLOGIC: Patient is alert and oriented x3. Cranial nerves II through XII are grossly intact. Motor and sensory are also intact. Normal speech, volume and content. Symmetrical smile. MUSCULOSKELETAL: Normal extremities with adequate strength and full range of motion. No lower extremity swelling or edema. No calf tenderness. LYMPHATICS: No significant lymphadenopathy is noted PSYCHIATRIC: Normal psychiatric evaluation. (Kannan Mitchell) Course Vital Signs 10/17/20 13:36 Temperature 97.8 F Pulse Rate 63 Respiratory 18 Rate Blood Pressure 185/115 O2 Sat by Pulse 97 Oximetry Medical Decision Making - Lab Data Result diagrams: 10/17/20 13:49 10/17/20 13:49 <Kannan Mitchell - Last Filed: 10/17/20 16:27> - Medical Decision Making EKG shows sinus bradycardia 55 bpm MI interval 162 QTC is 390 QTC is 373. Patient's EKG shows no ST segment elevation or depression. Patient does have Q waves in V1 and V2. Patient's chest x-ray shows no acute abnormality. Patient's troponin was mildly elevated. I started the patient on heparin. I spoke with Dr. Steiner and he agreed to admit the patient admitted the patient wrote admitting orders. I consulted cardiology as well. Repeat EKG was done and showed sinus bradycardia at 47 bpm MI interval is 160 QRS is 84 QT interval 418 QTC is 369. Patient's EKG shows some peaked T waves with slight ST segment elevation in V1 and V2 and some biphasic T waves in 3 and aVF (Kannan Mitchell) - Lab Data Lab Results 10/17/20 10/17/20 10/17/20 Range/Units 13:49 13:49 13:49 WBC 8.5 (3.8-10.6) k/uL RBC 5.24 (4.30-5.90) m/uL Hgb 16.6 (13.0-17.5) gm/dL Hct 47.4 (39.0-53.0) % MCV 90.5 (80.0-100.0) fL MCH 31.6 (25.0-35.0) pg MCHC 35.0 (31.0-37.0) g/dL RDW 12.5 (11.5-15.5) % Plt Count 204 (150-450) k/uL MPV 7.4 Neutrophils % 59 % Lymphocytes % 28 % Monocytes % 7 % Eosinophils % 4 % Basophils % 1 % Neutrophils # 5.0 (1.3-7.7) k/uL Lymphocytes # 2.3 (1.0-4.8) k/uL Monocytes # 0.6 (0-1.0) k/uL Eosinophils # 0.3 (0-0.7) k/uL Basophils # 0.1 (0-0.2) k/uL PT 9.8 (9.0-12.0) sec INR 0.9 (<1.2) APTT 23.4 (22.0-30.0) sec Sodium 135 L (137-145) mmol/L Potassium 4.3 (3.5-5.1) mmol/L Chloride 99 (98-107) mmol/L Carbon Dioxide 29 (22-30) mmol/L Anion Gap 7 mmol/L BUN 9 (9-20) mg/dL Creatinine 0.86 (0.66-1.25) mg/dL Est GFR (CKD-EPI)AfAm >90 (>60 ml/min/1.73 sqM) Est GFR (CKD-EPI)NonAf >90 (>60 ml/min/1.73 sqM) Glucose 112 H (74-99) mg/dL Calcium 10.2 (8.4-10.2) mg/dL Magnesium 1.9 (1.6-2.3) mg/dL Total Bilirubin 0.9 (0.2-1.3) mg/dL AST 27 (17-59) U/L ALT 15 (4-49) U/L Alkaline Phosphatase 87 (38-126) U/L Troponin I (0.000-0.034) ng/mL Total Protein 7.1 (6.3-8.2) g/dL Albumin 4.5 (3.5-5.0) g/dL Lipase 792 H (23-300) U/L 10/17/20 Range/Units 13:49 WBC (3.8-10.6) k/uL RBC (4.30-5.90) m/uL Hgb (13.0-17.5) gm/dL Hct (39.0-53.0) % MCV (80.0-100.0) fL MCH (25.0-35.0) pg MCHC (31.0-37.0) g/dL RDW (11.5-15.5) % Plt Count (150-450) k/uL MPV Neutrophils % % Lymphocytes % % Monocytes % % Eosinophils % % Basophils % % Neutrophils # (1.3-7.7) k/uL Lymphocytes # (1.0-4.8) k/uL Monocytes # (0-1.0) k/uL Eosinophils # (0-0.7) k/uL Basophils # (0-0.2) k/uL PT (9.0-12.0) sec INR (<1.2) APTT (22.0-30.0) sec Sodium (137-145) mmol/L Potassium (3.5-5.1) mmol/L Chloride (98-107) mmol/L Carbon Dioxide (22-30) mmol/L Anion Gap mmol/L BUN (9-20) mg/dL Creatinine (0.66-1.25) mg/dL Est GFR (CKD-EPI)AfAm (>60 ml/min/1.73 sqM) Est GFR (CKD-EPI)NonAf (>60 ml/min/1.73 sqM) Glucose (74-99) mg/dL Calcium (8.4-10.2) mg/dL Magnesium (1.6-2.3) mg/dL Total Bilirubin (0.2-1.3) mg/dL AST (17-59) U/L ALT (4-49) U/L Alkaline Phosphatase (38-126) U/L Troponin I 0.253 H* (0.000-0.034) ng/mL Total Protein (6.3-8.2) g/dL Albumin (3.5-5.0) g/dL Lipase (23-300) U/L Critical Care Time Critical Care Time: Yes Total Critical Care Time: 35 <Kannan Mitchell - Last Filed: 10/17/20 16:27> Disposition <Ruslan Willis - Last Filed: 10/17/20 13:36> Time of Disposition: 15:32 <Kannan Mitchell - Last Filed: 10/17/20 16:27> Clinical Impression: Acute non-ST elevation myocardial infarction (NSTEMI), Elevated lipase Disposition: ADMITTED IP TO THIS HOSP
--- NOTE | 2020-10-17 14:15 | XR ---
EXAMINATION TYPE: XR chest 2V DATE OF EXAM: 10/17/2020 COMPARISON: Chest x-ray June 12, 2018 HISTORY: Chest pain. TECHNIQUE: Frontal and lateral views of the chest are obtained. FINDINGS: There is mild chronic parenchymal change without suspicious focal air space opacity, pleur al effusion, or pneumothorax seen. The cardiac silhouette size remains within normal limits. The o sseous structures are intact. Overlying EKG leads redemonstrated. IMPRESSION: No acute cardiopulmonary process.
[2020-10-17 14:30] LABS: Basophils # (A) 0.1 k/uL (0-0.2); Basophils % (A) 1 %; Eosinophils # (A) 0.3 k/uL (0-0.7); Eosinophils % (A) 4 %; HCT 47.4 % (39.0-53.0); HGB 16.6 gm/dL (13.0-17.5); Lymphocytes # (A) 2.3 k/uL (1.0-4.8); Lymphocytes % (A) 28 %; MCH 31.6 pg (25.0-35.0); MCV 90.5 fL (80.0-100.0); Mean Platelet Volume 7.4; Monocytes # (A) 0.6 k/uL (0-1.0); Monocytes % (A) 7 %; Neutrophils % (A) 59 %; Platelet Count 204 k/uL (150-450); RBC 5.24 m/uL (4.30-5.90); RDW 12.5 % (11.5-15.5); WBC 8.5 k/uL (3.8-10.6)
[2020-10-17 14:41] LABS: ALT 15 U/L (4-49); AST 27 U/L (17-59); African American GFR (CKD) >90 (>60 ml/min/1.73 sqM); Albumin 4.5 g/dL (3.5-5.0); Alkaline Phosphatase 87 U/L (38-126); Anion Gap 7 mmol/L; Blood Urea Nitrogen 9 mg/dL (9-20); Calcium 10.2 mg/dL (8.4-10.2); Carbon Dioxide 29 mmol/L (22-30); Chloride 99 mmol/L (98-107); Glucose 112 mg/dL (74-99); INR 0.9 (<1.2); Lipase 792 U/L (23-300); Magnesium 1.9 mg/dL (1.6-2.3); Non-African American GFR(CKD) >90 (>60 ml/min/1.73 sqM); Partial Thromboplastin Time 23.4 sec (22.0-30.0); Potassium 4.3 mmol/L (3.5-5.1); Prothrombin Time 9.8 sec (9.0-12.0); Sodium 135 mmol/L (137-145); Total Bilirubin 0.9 mg/dL (0.2-1.3); Total Protein 7.1 g/dL (6.3-8.2)
[2020-10-17] MEDS ORDERED: HEPARIN SODIUM,PORCINE 5,000 UNIT/ML 1 ML VIAL IV STA (15:12)
[2020-10-17] MEDS ORDERED: HEPARIN SOD,PORK IN 0.45% NACL 25,000 UNIT in 0.45% NACL 1 250ML.BAG IV SCH (15:15)
[2020-10-17] MEDS ORDERED: NITROGLYCERIN OINT 1 INCH/GM PACKET TOPICAL STA (15:30)
[2020-10-17] MEDS ORDERED: ASPIRIN 81 MG PO STA (15:30)
[2020-10-17] MEDS ORDERED: HEPARIN SODIUM,PORCINE 10,000 UNIT/ML 1 ML VIAL IV STA (15:43)
[2020-10-17] MEDS ORDERED: MORPHINE SULFATE 4 MG/ML SYRINGE IVP STA (17:13)
[2020-10-17] MEDS: NITROGLYCERIN SL TABS 0.4 MG TAB SUBLINGUAL PRN ×3 (18:37→18:48)
[2020-10-17] MEDS: NITROGLYCERIN OINT 1 INCH/GM PACKET TOPICAL SCH (18:44)
[2020-10-17] MEDS: ATORVASTATIN 80 MG TAB PO SCH (22:11)
[2020-10-17] MEDS: METOPROLOL TARTRATE 25 MG TAB PO SCH (22:11)
[2020-10-17] MEDS: QUEtiapine 50 MG TAB PO SCH (22:12)
[2020-10-18] MEDS: NITROGLYCERIN OINT 1 INCH/GM PACKET TOPICAL SCH ×2 (00:13→06:00)
[2020-10-18] MEDS ORDERED: HEPARIN SODIUM 1,000 UN/ML (10ML VL) IV PRN (01:00)
[2020-10-18] MEDS ORDERED: SODIUM CHLORIDE 0.9% 1,000 ML in EMPTY BAG 1 BAG IV ONE (07:53)
[2020-10-18] MEDS ORDERED: ATORVASTATIN 80 MG TAB PO STA (07:53)
[2020-10-18] MEDS ORDERED: NITROGLYCERIN SL TABS 0.4 MG TAB SUBLINGUAL PRN ×2 (07:53→11:25)
[2020-10-18] MEDS ORDERED: ALPRAZolam 0.5 MG TAB PO PRN (07:53)
[2020-10-18] MEDS ORDERED: ASPIRIN 325 MG TAB PO STA (07:53)
[2020-10-18] MEDS ORDERED: ALPRAZolam 0.25 MG TAB PO PRN (07:53)
[2020-10-18 08:41] LABS: Cholesterol 119 mg/dL (<200); HDL Cholesterol 54 mg/dL (40-60); LDL Cholesterol,Calculated 52 mg/dL (0-99); Triglycerides 66 mg/dL (<150)
--- NOTE | 2020-10-18 08:48 | ECHOF ---
Referral Reason:new chest pain, elevated troponin MEASUREMENTS -------- HEIGHT: 177.8 cm WEIGHT: 61.7 kg BP: 101/59 RVIDd: 3.5 cm (< 3.3) IVSd: 1.1 cm (0.6 - 1.1) LVIDd: 3.7 cm (3.9 - 5.3) LVPWd: 1.0 cm (0.6 - 1.1) IVSs: 1.4 cm LVIDs: 2.3 cm LVPWs: 1.3 cm LA Diam: 1.9 cm (2.7 - 3.8) Ao Diam: 3.0 cm (2.0 - 3.7) AV Cusp: 1.6 cm (1.5 - 2.6) MV EXCURSION: 20.043 mm (> 18.000) MV EF SLOPE: 110 mm/s (70 - 150) EPSS: 0.3 cm MV E Jonathan: 0.86 m/s MV DecT: 292 ms MV A Jonathan: 0.53 m/s MV E/A Ratio: 1.60 FINDINGS -------- Sinus rhythm. This was a technically good study. The left ventricular size is normal. There is borderline concentric left ventricular hypertrophy. Overall left ventricular systolic function is mildly impaired with, an EF between 45 - 50 %. Mid i nferoseptal LV wall motion is akinetic. Apical septum LV wall motion is akinetic. The right ventricle is mildly enlarged. The left atrium is normal in size. The right atrium is normal in size. Interatrial and interventricular septum intact. The aortic valve is trileaflet, and appears structurally normal. No aortic stenosis or regurgitation. The mitral valve is normal. Trace tricuspid regurgitation present. The right ventricular systolic pressure, as measured by Dopp ler, is {RVSP}. There is no pulmonic regurgitation present. The aortic root size is normal. Normal inferior vena cava with normal inspiratory collapse consistent with estimated right atrial pre ssure of 5 mmHg. There is no pericardial effusion. CONCLUSIONS -------- 1. The left ventricular size is normal. 2. There is borderline concentric left ventricular hypertrophy. 3. Overall left ventricular systolic function is mildly impaired with, an EF between 45 - 50 %. 4. Mid inferoseptal LV wall motion is akinetic. 5. Apical septum LV wall motion is akinetic. 6. The right ventricle is mildly enlarged. 7. There is no pericardial effusion. QUALITY CONTROL TECH RAW MATERIALS: Tri Rojas RDCS
[2020-10-18] MEDS: METOPROLOL TARTRATE 25 MG TAB PO SCH ×2 (08:50→20:55)
[2020-10-18] MEDS ORDERED: ISOSORBIDE MONONITRATE ER 30 MG TAB.ER.24H PO SCH (09:00)
[2020-10-18] MEDS ORDERED: ASPIRIN 325 MG TAB PO SCH (09:00)
--- NOTE | 2020-10-18 09:20 | P.CRDCN ---
History of Present Illness History of present illness: HISTORY OF PRESENTING ILLNESS This is a pleasant 55-year-old male past medical history significant for Dyslipidemia, nicotine dependence, Coronary artery disease, NSTEMI in 2018 s/p PCI. He follows in the office with Dr. Valderrama. We have been asked to see in consultation for chest pain and elevated troponin . Patient is seen and examined at bedside, in no acute distress . States he states he has left-sided chest pain started [employer] yesterday before 8:00am. At home he took a nitro alleviated some of his pain he states he lay down, slept for a couple hours. Woke up around 12:00 the pain worsened shortly after. Describes the pain as burning, radiating to his left arm. Associated symptoms include shortness of breath. Denies palpitations, diaphoresis, or nausea. Alleviating symptoms is when he walks around and took the nitro. He states the pain was constant and had no aggravating symptoms. He is a daily smoker, smokes 4-5 cigarrettes a day. Denies history of diabetes or stroke. Current home cardiac medications include aspirin, lipitor and metoprolol tartrate. Laboratory data reviewed, troponin 0.25-->3.3-->16.8, sodium 135, potassium 4.3, serum creatinine 0.86, BUN 9, magnesium 1.9, liver enzymes within normal limits, lipase elevated at 792, COvid-19 negative Vital signs stable BP 110/65 HR 61, afebrile, 97% on room air. DIAGNOSTICS EKG reveals sinus mechanism HR [address] elevation in leads V1 and V2, peaked T waves in anterior leads Prior EKG in 2018 sinus mechanism with sinus arrhythmia T wave inversion in lead III. Last Cardiac Catheterization 04/2019- revealed moderate disease in the left circumflex and LAD with normal IFR on both vessels to nondominant right. Significant disease in the first small diagnoal branch, unchanged since 2018. Cardiac catheterizaiton in 06/2018 with successful stenting of the first obtuse marginal branch and mid LAD Telemetry tracings indicate sinus mechanism HR 60-70s Chest xray no acute cardiopulmonary process REVIEW OF SYSTEMS At the time of my exam: CONSTITUTIONAL: Denies fever or chills. CARDIOVASCULAR: + chest pain, +shortness of breath, Denies orthopnea, PND or palpitations. RESPIRATORY: Denies cough. GASTROINTESTINAL: Denies abdominal pain, diarrhea, constipation, nausea or vomiting. MUSCULOSKELETAL: Denies myalgias. NEUROLOGIC: +numbness/tingling to left arm. Denies headacbe or weakness. ENDOCRINE: Denies fatigue, weight change, polydipsia or polyurina. GENITOURINARY: Denies burning, hematuria or urgency with micturation. HEMATOLOGIC: Denies history of anemia or bleeding. PHYSICAL EXAMINATION CONSTITUTIONAL: No apparent distress. HEENT: Head is normocephalic. Pupils are equal, round. Sclerae anicteric. Mucous membranes of the mouth are moist. No JVD. No carotid bruit. CHEST EXAMINATION: Lungs are clear to auscultation. No chest wall tenderness is noted on palpation or with deep breathing. HEART EXAMINATION: Regular rate and rhythm. S1, S2 heard. No murmurs, gallops or rub. ABDOMEN: Soft, nontender. Positive bowel sounds. EXTREMITIES: 2+ peripheral pulses, no lower extremity edema and no calf tenderness. SKIN: intact NEUROLOGIC EXAMINATION: Patient is awake, alert and oriented x3. ASSESSMENT Coronary artery disease History of NSTEMI status post PCI first obtuse marginal branch and mid LAD Nicotine Dependence Dyslipidemia PLAN Obtain 2D echocardiogram and doppler study to assess cardiac structure and function. Cardiac catheterization with Dr. Valderrama. I have discussed the risks, benefits and alternative therapies for the above- mentioned procedure and for both sedation/analgesia as well as necessary blood product administration, if indicated, as they pertain to this patient. The patient has indicated understanding and acceptance of the risks and procedures discussed. Questions have been answered appropriately and he is agreeable to move forward with the above-stated procedure. Smoking cessation discussed and highly recommended. Nurse Practitioner note has been reviewed, I agree with a documented findings and plan of care. Patient was seen and examined. Past Medical History Past Medical History: COPD, Hyperlipidemia, Hypertension, Myocardial Infarction (CT), Osteoarthritis (OA) Last Myocardial Infarction Date:: 06/22/18 History of Any Multi-Drug Resistant Organisms: None Reported Past Surgical History: Heart Catheterization With Stent, Tonsillectomy Past Anesthesia/Blood Transfusion Reactions: No Reported Reaction Date of Last Stent Placement:: 06/22/18 Smoking Status: Current every day smoker - Past Family History Father Family Medical History: Cancer Medications and Allergies Home Medications Medication Instructions Recorded Confirmed Type Aspirin 81 mg PO DAILY chew 06/14/18 10/17/20 Rx Atorvastatin [Lipitor] 80 mg PO HS #90 tab 06/14/18 10/17/20 Rx Metoprolol Tartrate [Lopressor] 25 mg PO BID #180 tab 06/14/18 10/17/20 Rx Isosorbide Mononitrate ER [Imdur] 30 mg PO DAILY 10/17/20 10/17/20 History Nitroglycerin Sl Tabs [Nitrostat] 0.4 mg SL Q5M PRN 10/17/20 10/17/20 History QUEtiapine [SEROquel] 50 mg PO HS 10/17/20 10/17/20 History Allergies Allergy/AdvReac Type Severity Reaction Status Date / Time codeine Allergy Rash/Hives Verified 10/17/20 16:18 Physical Exam Vitals: Vital Signs Temp Pulse Pulse Resp BP BP Pulse Ox 10/18/20 04:00 98.1 F 63 16 101/59 96 10/18/20 00:00 98.4 F 81 18 105/62 97 10/17/20 20:00 97.9 F 76 18 131/87 98 10/17/20 18:53 52 L 141/82 10/17/20 18:47 56 L 145/99 10/17/20 18:41 61 156/89 10/17/20 18:36 54 L 144/79 10/17/20 18:28 97.6 F 54 L 20 144/79 98 10/17/20 17:50 55 L 16 148/85 98 10/17/20 13:36 97.8 F 63 18 185/115 97 Intake and Output 10/17/20 10/18/20 10/18/20 22:59 06:59 14:59 Intake Total 67.724 Output Total 250 Balance -182.276 Intake: Intake, IV Titration 67.724 Amount Heparin Sod,Pork in 0.45% 67.724 NaCl 25,000 unit In 0.45 % NaCl 1 250ml.bag @ 12 UNITS/KG/HR 7.348 mls/hr IV .Q24H [facility] Rx#: [id number] Output: Urine 250 Other: Voiding Method Toilet Toilet # Voids 1 Weight 61.235 kg 62 kg Results 10/17/20 13:49 10/17/20 13:49 Cardiac Enzymes 10/17/20 10/17/20 10/17/20 Range/Units 13:49 13:49 16:31 AST 27 (17-59) U/L Troponin I 0.253 H* 3.350 H* (0.000-0.034) ng/mL 10/17/20 Range/Units 19:53 AST (17-59) U/L Troponin I 16.800 H* (0.000-0.034) ng/mL Coagulation 10/17/20 10/17/20 Range/Units 13:49 23:48 PT 9.8 (9.0-12.0) sec APTT 23.4 35.7 H (22.0-30.0) sec CBC 10/17/20 Range/Units 13:49 WBC 8.5 (3.8-10.6) k/uL RBC 5.24 (4.30-5.90) m/uL Hgb 16.6 (13.0-17.5) gm/dL Hct 47.4 (39.0-53.0) % Plt Count 204 (150-450) k/uL Comprehensive Metabolic Panel 10/17/20 Range/Units 13:49 Sodium 135 L (137-145) mmol/L Potassium 4.3 (3.5-5.1) mmol/L Chloride 99 (98-107) mmol/L Carbon Dioxide 29 (22-30) mmol/L BUN 9 (9-20) mg/dL Creatinine 0.86 (0.66-1.25) mg/dL Glucose 112 H (74-99) mg/dL Calcium 10.2 (8.4-10.2) mg/dL AST 27 (17-59) U/L ALT 15 (4-49) U/L Alkaline Phosphatase 87 (38-126) U/L Total Protein 7.1 (6.3-8.2) g/dL Albumin 4.5 (3.5-5.0) g/dL Current Medications Generic Name Dose Route Start Last Admin Trade Name Freq PRN Reason Stop Dose Admin Aspirin 325 mg 10/18/20 09:00 Aspirin 325 Mg Tab PO DAILY ASIYA Atorvastatin Calcium 80 mg 10/17/20 21:00 10/17/20 22:11 Atorvastatin 80 Mg Tab PO 80 mg HS ASIYA Administration Heparin Sodium (Porcine) 0 unit 10/18/20 01:00 10/18/20 01:28 Heparin Sodium 1,000 Un/Ml (10ml Vl) IV 1,525 unit PER PROTOCOL PRN Administration Low PTT Protocol Heparin Sodium/Sodium Chloride 250 mls @ 7.348 mls/hr 10/17/20 15:15 10/18/20 00:54 25,000 unit/ Sodium Chloride IV 14 units/kg/hr .Q24H ASIYA 8.573 mls/hr Titration Protocol 12 UNITS/KG/HR Isosorbide Mononitrate 30 mg 10/18/20 09:00 Isosorbide Mononitrate Er 30 Mg Tab.Er.24h PO DAILY ASIYA Metoprolol Tartrate 25 mg 10/17/20 21:00 10/17/20 22:11 Metoprolol Tartrate 25 Mg Tab PO 25 mg BID ASIYA Administration Nitroglycerin 0.4 mg 10/17/20 16:02 10/17/20 18:48 Nitroglycerin Sl Tabs 0.4 Mg Tab SUBLINGUAL 0.4 mg Q5M PRN Administration Chest Pain Quetiapine Fumarate 50 mg 10/17/20 21:00 10/17/20 22:12 Quetiapine 50 Mg Tab PO 50 mg HS ASIYA Administration Intake and Output 10/17/20 10/18/20 10/18/20 22:59 06:59 14:59 Intake Total 67.724 Output Total 250 Balance -182.276 Intake: Intake, IV Titration 67.724 Amount Heparin Sod,Pork in 0.45% 67.724 NaCl 25,000 unit In 0.45 % NaCl 1 250ml.bag @ 12 UNITS/KG/HR 7.348 mls/hr IV .Q24H [facility] Rx#: [id number] Output: Urine 250 Other: Voiding Method Toilet Toilet # Voids 1 Weight 61.235 kg 62 kg 10/17/20 13:49 10/17/20 13:49
[2020-10-18] MEDS: fentaNYL (PF) 50 MCG/ML 2 ML AMP IV ONE ×2 (09:55→11:02)
[2020-10-18] MEDS ORDERED: IV FLUID CONTINUATION 500 ML IV ONE (09:55)
[2020-10-18] MEDS ORDERED: LIDOCAINE 1% INJ 10MG/ML (20 ML MDV) SQ ONE (09:56)
[2020-10-18] MEDS: HEPARIN SODIUM 1,000 UN/ML (10ML VL) IV ONE ×2 (10:06→10:55)
[2020-10-18] MEDS ORDERED: PRASUGREL 10 MG TAB PO ONE (10:09)
[2020-10-18] MEDS ORDERED: PRASUGREL 10 MG TAB ONE (10:09)
[2020-10-18] MEDS: NITROGLYCERIN 1000MCG/10ML SYRINGE INTRACORON ONE ×2 (10:29→10:39)
[2020-10-18] MEDS ORDERED: IOPAMIDOL-370 125ML BTL INJ ONE (10:29)
[2020-10-18] MEDS: MIDAZOLAM 2 MG/2 ML VIAL IV ONE ×2 (10:32→10:39)
[2020-10-18] MEDS ORDERED: IOPAMIDOL-370 100ML BTL INJ ONE ×2 (10:49→11:07)
[2020-10-18] MEDS ORDERED: IOPAMIDOL-370 50ML BTL INJ ONE (10:53)
[2020-10-18] MEDS ORDERED: MAG HYDROX/AL HYDROX/SIMETH 30 ML CUP PO PRN (11:25)
[2020-10-18] MEDS ORDERED: ZOLPIDEM 5 MG TAB PO PRN (11:25)
[2020-10-18] MEDS ORDERED: ATROPINE SULFATE 0.1 MG/ML 10ML SYRINGE IV PRN (11:25)
[2020-10-18] MEDS ORDERED: RX INFO: IV CONTRAST WAS GIVEN 1 EACH MISC MISCELLANE PRN (11:25)
[2020-10-18] MEDS ORDERED: SODIUM CHLORIDE 0.9% 1,000 ML IV SCH (11:30)
--- NOTE | 2020-10-18 12:59 | CC ---
CARDIAC CATHETERIZATION REPORT Mr. Schreiber is a 55-year-old male with a known history of coronary artery disease, prior percutaneous revascularization in 2018 of the LAD and the obtuse marginal branch, who presented with symptoms of chest discomfort and evidence of non ST-segment elevation myocardial infarction. In view of that, recommendations made regarding cardiac catheterization. The procedure as well as the risks and the complications were discussed with the patient who is in full understanding and agreement. PROCEDURE DETAILS: Patient was brought to laborer/key man in a fasting semi-sedated state after receiving fentanyl and Benadryl and achieving moderate conscious sedated state. Using Xylocaine anesthesia and Seldinger technique, a 6-Malay sheath was introduced in the right femoral artery. Selective right and left coronary angiography were performed using a 6- Malay 4 bend right and left Iban catheter. Multiple views of the coronary artery including hemiaxial views were obtained. The left Iban was used to cross the aortic valve and left ventricular end-diastolic pressure was calculated. Following that, catheter was removed. Images were reviewed. FINDINGS: LEFT MAIN: This is a large-sized vessel, short, bifurcating into left circumflex, left anterior descending artery, left main coronary artery has no evidence of high-grade stenosis. LEFT ANTERIOR DESCENDING ARTERY: This is a large-sized vessel, reaching toward the apex with a wraparound apex segment giving rise to a diagonal branch in the mid segment. The left anterior descending artery at the stented segment is patent. At the takeoff of the diagonal branch, there is a 30-40 percent plaque, unchanged compared to 2019. The diagonal branch has a plaque in the mid segment with an area of stenosis up to 80% unchanged since 2019. LEFT CIRCUMFLEX: This is a large dominant vessel giving rise to a large first obtuse marginal branch. The second obtuse marginal branch is small in caliber distally bifurcating into PDA and posterolateral segment and branches. The left circumflex at the site of the takeoff of the first diagonal branch has an 80-90 percent eccentric lesion. The first obtuse marginal branch stented segment has in stent restenosis of about 70%. RIGHT CORONARY ARTERY: This is a small nondominant vessel. Left ventriculogram is not performed. HEMODYNAMICS: There was no gradient across the aortic valve. The left ventricle end-diastolic pressure was 8-10 mmHg. CONCLUSION: 1. Significant stenosis in the proximal left circumflex at the takeoff of the obtuse marginal branch. 2. Mild to moderate disease in the mid LAD with significant disease in the first diagonal branch unchanged compared to the images obtained in 2019. 3. Nondominant right. RECOMMENDATIONS: In view of findings and anatomy, I recommend proceeding with angioplasty and stenting of the left circumflex. The procedure as well as risks and complications were discussed with the patient who is in full understanding and agreement. MMJB / JUAN CN: [id number] /
--- NOTE | 2020-10-18 13:04 | PTCA ---
PERCUTANEOUSTRANS CORORONARY ANGIOGRAPHY INDICATION: Mr. Ramon is a 55-year-old male with known history of coronary artery disease who presented with non ST-segment elevation myocardial infarction, underwent cardiac catheterization and was found to have a critical stenosis involving the proximal left circumflex. In view of that, recommendation regarding angioplasty and stenting. The procedure as well as the risks and the complications were discussed with the patient who is in full understanding and agreement. PROCEDURE: A 6-Greek FR4 guiding catheter was introduced in the system. After cannulating the left main a 0.014 balanced medium weight J-wire was advanced across the lesion positioned distal left circumflex. Subsequently a second 0.014 balanced medium weight J- wire was advanced and positioned in the first obtuse marginal branch. Subsequently a 2.5 x 12 mm NC Trek balloon was advanced and inflation in the proximal left circumflex was performed at maximum 10 atmospheres. Subsequently, these balloons were introduced over the wire of the obtuse marginal branch and inflation in the stented segment at 10 atmospheres was done. Following that the balloons were removed and a 3.0 x 15 mm Xience Yajaira stent was deployed, post dilated at 16 atmospheres. Following that the balloon was removed and the wire of the obtuse marginal branch was removed and subsequently a 3.5 x 8 mm NC Trek balloon was advanced and one inflation of proximal segment of the stent was performed at 12 atmospheres. After the last inflation, after appropriate wait, the balloon was withdrawn back in the guiding catheter. At that point, the patient was having severe chest discomfort, so an IVUS Waldo Eye was advanced and images were obtained that showed good apposition of the stent and no evidence of dissection. Following that, multiple images of the left circumflex were performed that revealed a good flow with no evidence of dissection or thrombus. At that point, the guiding catheter, the balloon and the guidewire were removed and a 6-Greek tight pigtail catheter was introduced in the left ventricle. Left ventricular end- diastolic pressure was recalculated. Following that a 30 degree [place]EN[place] view of the aorta was performed. Following that, catheter and sheath were removed. Hemostasis was obtained with deployment of an Angio-Seal. There was no immediate complication. Patient was returned to his room in stable condition. Of note, the patient's chest discomfort started to resolved at the end of the procedure. He had no EKG changes. He received a total of 5000 units of intravenous heparin. His ACT was followed. He has received an oral loading dose of Effient. RESULTS: 1. Successful stenting of the proximal left circumflex with reduction of stenosis from 85% to 0%. 2. Successful angioplasty of the first obtuse marginal branch with reduction of stenosis from 70% to less than 5%. 3. Normal appearance of the ascending aorta. RECOMMENDATION: Patient will be continued on aspirin, Effient, beta tami, LEBRON inhibitor and statin. The importance of dual antiplatelet treatment were discussed with the patient and his family and they are in full understanding and agreement. Duration of sedation is 71 minute. MMODL / IJN: [id number] / MTDD
[2020-10-18 15:08] VITALS: BMI 19.5
--- NOTE | 2020-10-18 17:21 | PN ---
PROGRESS NOTE DATE OF SERVICE: 10/18/2020 CHIEF COMPLAINT: Chest pain. HISTORY OF PRESENT ILLNESS: This gentleman is doing well and he is comfortable. He has had no trouble during the night, including chest pain, shortness of breath, palpitations, etc. He is going for cardiac cath. PHYSICAL EXAMINATION: Chest is clear. Cardiac exam is normal. The abdomen is soft and nontender. IMPRESSION: 1. Coronary artery disease. 2. Possible [id number] myocardial infarction. PLAN: Cardiac cath today. MMCESARL / JUAN CN: [id number] /
--- NOTE | 2020-10-18 17:32 | HP ---
HISTORY AND PHYSICAL CHIEF COMPLAINT: Chest pain. HISTORY OF PRESENT ILLNESS: This is another admission for this 55-year-old male. He has had a history of coronary artery disease in the past. He is also a smoker. He came into the emergency room with a complaint of anterior chest pain without diaphoresis or shortness of breath. He had a little discomfort in the left upper arm. Troponin was also slightly elevated. His lipase was also up at 790. He was admitted for further evaluation by Cardiology. REVIEW OF SYSTEMS: He has had no syncope, neurologic problems, cough, hemoptysis, sputum production, orthopnea, PND, abdominal pain, nausea, vomiting, hematemesis, melena, hematochezia, jaundice, hepatitis, cirrhosis, pancreatitis, renal failure, hematuria, frequency, urgency, nocturia, dysuria, incontinence, etc. He is not diabetic. Past medical history, family history, and personal and social histories reveal he is ALLERGIC TO CODEINE. MEDICATIONS: Medications include Seroquel 50 mg at bedtime, ibuprofen 800 mg q.i.d. p.r.n., albuterol HFA 2 puffs q.i.d. p.r.n., isosorbide dinitrate 30 mg once a day, nicotine patch, 81 mg of aspirin, atorvastatin 80 mg at bedtime, metoprolol 25 mg twice a day. He does continue to smoke, but he does not drink. PHYSICAL EXAMINATION: Blood pressure is 118/72, pulse of 80 and regular, respirations of 16. He is afebrile. In general he appeared to be asthenic but in no acute distress. Skin color was normal. Skin was warm and dry. Lymph nodes were not enlarged. Head, ears, eyes, nose, mouth and throat were normal. Carotids were normal. Chest was clear. Cardiac exam demonstrated normal sinus rhythm and no murmurs or extra sounds. Abdomen was flat, soft and nontender without visceromegaly or masses. Bowel sounds were present. Extremities were normal. Neurologically he was intact. He was admitted to the hospital with the diagnoses: 1. Chest pain. 2. Elevated troponin. 3. Previous history of coronary artery disease. 4. Chronic obstructive pulmonary disease. PLAN: 1. Bedrest. 2. IV fluids. 3. Serial EKGs and enzymes. 4. Consult Cardiology. MMODL / IJN: [id number] /
[2020-10-18] MEDS: ATORVASTATIN 80 MG TAB PO SCH (20:55)
[2020-10-18] MEDS: QUEtiapine 50 MG TAB PO SCH (20:55)
[2020-10-19] MEDS ORDERED: HEPARIN SODIUM,PORCINE 10,000 UNIT in SODIUM CHLORIDE 0.9% 1,000 ML IRRIGATION PRN (07:00)
[2020-10-19] MEDS ORDERED: HEPARIN SODIUM,PORCINE 2,500 UNIT in SODIUM CHLORIDE 0.9% 250 ML IRRIGATION PRN (07:00)
[2020-10-19] MEDS ORDERED: ASPIRIN 81 MG PO SCH (09:00)
[2020-10-19] MEDS: PRASUGREL 10 MG TAB PO SCH (09:54)
[2020-10-19] MEDS: ISOSORBIDE MONONITRATE ER 30 MG TAB.ER.24H PO SCH (09:54)
[2020-10-19] MEDS: ASPIRIN 81 MG PO SCH (09:54)
[2020-10-19] MEDS: METOPROLOL TARTRATE 25 MG TAB PO SCH ×2 (09:55→20:45)
[2020-10-19 11:02] LABS: African American GFR (CKD) >90 (>60 ml/min/1.73 sqM); Anion Gap 10 mmol/L; Blood Urea Nitrogen 12 mg/dL (9-20); Calcium 9.3 mg/dL (8.4-10.2); Carbon Dioxide 25 mmol/L (22-30); Chloride 101 mmol/L (98-107); Glucose 102 mg/dL (74-99); Non-African American GFR(CKD) >90 (>60 ml/min/1.73 sqM); Potassium 3.7 mmol/L (3.5-5.1); Sodium 136 mmol/L (137-145)
--- NOTE | 2020-10-19 11:58 | PN ---
PROGRESS NOTE Mr. Ramon is 55-year-old male with a history of coronary artery disease who presented with non STEMI and underwent stenting of left circumflex yesterday. Post procedure he had prolonged episode of discomfort. He is feeling well this morning. No chest pain. He is anxious to go home. He is breathing stable. He denies any dizziness or palpitation. He denies any nausea. He is hemodynamically stable. Continues on aspirin once a day, Lipitor 80 mg daily, isosorbide mononitrate 30 mg daily, metoprolol tartrate 25 mg twice a day, Effient 10 mg daily. PHYSICAL EXAMINATION: Blood pressure 138/70 with a heart rate in 60s. LUNGS: Clear. HEART: Regular rate and rhythm, S1, S2. No S3. No rub. ABDOMEN: Soft and nontender. EXTREMITIES: No edema. Right radial pulse intact. EKG revealed no evidence of acute changes. IMPRESSION: 1. Status post non ST segment elevation myocardial infarction. 2. Status post stenting of the left circumflex. 3. History of hypertension. 4. Hyperlipidemia. RECOMMENDATION: We will continue his present therapy and increase his level of activity. If he remains stable, I would expect he should be able to be discharged home tomorrow. MMODL / IJN: [id number] /
--- NOTE | 2020-10-19 14:32 | PN ---
PROGRESS NOTE DATE OF SERVICE: 10/19/2020 CHIEF COMPLAINT: Chest pain and acute NSTEMI. HISTORY OF PRESENT ILLNESS: This gentleman is doing well. He is feeling much better. He has no further chest pain or pressure and he is not short of breath. Circumflex was dilated and stented. PHYSICAL EXAMINATION: Chest is clear. Cardiac exam is normal. Abdomen is soft, nontender. IMPRESSION: 1. Acute NSTEMI. 2. Previous history of coronary artery disease. 3. Chronic obstructive pulmonary disease. PLAN: Progress activity and discharge when cleared by Cardiology. MMODL / IJN: [id number] /
[2020-10-19] MEDS: QUEtiapine 50 MG TAB PO SCH (20:45)
[2020-10-19] MEDS: ATORVASTATIN 80 MG TAB PO SCH (20:45)
[2020-10-20 08:44] LABS: African American GFR (CKD) >90 (>60 ml/min/1.73 sqM); Anion Gap 7 mmol/L; Blood Urea Nitrogen 13 mg/dL (9-20); Calcium 9.1 mg/dL (8.4-10.2); Carbon Dioxide 29 mmol/L (22-30); Chloride 101 mmol/L (98-107); Glucose 151 mg/dL (74-99); Non-African American GFR(CKD) >90 (>60 ml/min/1.73 sqM); Potassium 3.4 mmol/L (3.5-5.1); Sodium 137 mmol/L (137-145)
[2020-10-20] MEDS: PRASUGREL 10 MG TAB PO SCH (08:56)
[2020-10-20] MEDS: METOPROLOL TARTRATE 25 MG TAB PO SCH (08:56)
[2020-10-20] MEDS: ISOSORBIDE MONONITRATE ER 30 MG TAB.ER.24H PO SCH (08:56)
[2020-10-20] MEDS: ASPIRIN 81 MG PO SCH (08:56)
[2020-10-20 09:01] VITALS: BP 107/72; PULSE 90; RESP 17; TEMP 97.6
--- NOTE | 2020-10-20 09:54 | PN ---
PROGRESS NOTE Mr. Ramon is a 55-year-old male who presented with non STEMI. He has a known history of coronary artery disease. He underwent stenting of his left circumflex. He is doing well this morning, ambulating without any difficulty. Denying any chest pain. Denies any dizziness or palpitation. He is in sinus mechanism without any malignant arrhythmia. He continues to be on aspirin once a day, Lipitor 80 mg daily, isosorbide mononitrate 30 mg daily, metoprolol tartrate 25 mg twice a day, Effient 10 mg daily. PHYSICAL EXAMINATION: Blood pressure 107/70 with a heart rate in 90s. LUNGS: Clear. HEART: Regular rhythm S1, S2. No S3. No rub. ABDOMEN: Soft, nontender. EXTREMITIES: No edema. LAB DATA: BUN and creatinine 13 and 0.76. His potassium is 3.4. IMPRESSION: 1. Status post stenting of the left circumflex. 2. Prior stenting of the left anterior descending and the obtuse marginal branch. 3. History of hypertension. 4. Hyperlipidemia. 5. Chronic tobacco use. RECOMMENDATION: Patient should be able to be discharged home today and followed as an outpatient. The importance of smoking cessation was discussed with him. MMODL / IJN: [id number] /
--- NOTE | 2020-10-22 21:36 | DS ---
DISCHARGE SUMMARY CHIEF COMPLAINT: Chest pain. HISTORY OF PRESENT ILLNESS AND PHYSICAL EXAMINATION: Details of this man's history and physical can be found in the initial workup. LABORATORY STUDIES: While he was in the hospital, he had laboratory studies, details of which can be found in the laboratory section of his chart. COURSE IN THE HOSPITAL: After admission, he was placed on bedrest, started on intravenous fluids. His EKG remained unremarkable, but his troponins elevated. He was seen by Cardiology and taken to the cardiovascular lab director where he underwent stenting of the circumflex. Postoperatively had no problems including chest pain, shortness of breath, arrhythmias, etc. It was felt he could go home on the and he will be followed up in several days in the office. FINAL DIAGNOSES: 1. Acute and non ST elevation myocardial infarction. 2. Chronic obstructive pulmonary disease. 3. History of coronary artery disease. OPERATIONS: Cardiac cath and stenting. CONSULTATIONS: Cardiology. He is improved. MMODL / JUAN CN: [id number] /
== END 2020-10-20 13:39 | disposition home or self-care (01) | DRG 247 ==
LOC: EC 13:33 → 3SCARD 16:02
PROVIDERS: ADMIT Family Medicine; ATTEND Family Medicine
PROC: 027134Z Dilation of Coronary Artery, Two Arteries with Drug-eluting Intraluminal Device, Percutaneous Approach (ICD-10-PCS; principal; 2020-10-18 09:00)
PROC: 4A023N7 Measurement of Cardiac Sampling and Pressure, Left Heart, Percutaneous Approach (ICD-10-PCS; 2020-10-18 09:00)
PROC: B2111ZZ Fluoroscopy of Multiple Coronary Arteries using Low Osmolar Contrast (ICD-10-PCS; 2020-10-18 09:00)
PROC: B240ZZ3 Ultrasonography of Single Coronary Artery, Intravascular (ICD-10-PCS; 2020-10-18 09:00)
DX: I21.4 Non-ST elevation (NSTEMI) myocardial infarction (principal); E78.5 Hyperlipidemia, unspecified; F17.200 Nicotine dependence, unspecified, uncomplicated; I25.2 Old myocardial infarction; Z95.5 Presence of coronary angioplasty implant and graft; Z79.899 Other long term (current) drug therapy; Z79.82 Long term (current) use of aspirin; I10 Essential (primary) hypertension; M19.90 Unspecified osteoarthritis, unspecified site; Z20.822 Contact with and (suspected) exposure to COVID-19; F32.9 Major depressive disorder, single episode, unspecified; R00.1 Bradycardia, unspecified; I25.10 Atherosclerotic heart disease of native coronary artery without angina pectoris; J44.9 Chronic obstructive pulmonary disease, unspecified
CPT/HCPCS: 36415; 71046; 80048; 80053; 80061; 83690; 83735; 84484; 85025; 85347; 85610; 85730; 87635; 92978; 93005; 93306; 93458; 99285

== ENCOUNTER → 2022-03-19 | Outpatient (CLI) | payer OTHER ==
[2022-03-19 11:16] LABS: ALT 17 U/L (10-49); AST 24 U/L (14-35); African American GFR (CKD) 112.7 (60.0-200.0); Albumin 4.5 g/dL (3.8-4.9); Albumin/Globulin Ratio 1.88 (1.60-3.17); Alkaline Phosphatase 87 U/L (41-126); BUN/Creat Ratio 10.74 Ratio (12.00-20.00); Calcium 9.3 mg/dL (8.7-10.3); Chloride 102 mmol/L (96-109); Chol/HDL Ratio 3.02 Ratio; Globulin 2.4 g/dL (1.6-3.3); Glucose 72 mg/dL (70-110); LDL Cholesterol,Calculated 63.5 mg/dL (0.0-131.0); Non-African American GFR(CKD) 97.2 (60.0-200.0); Potassium 4.3 mmol/L (3.5-5.5); Sodium 140 mmol/L (135-145); Total Protein 6.8 g/dL (6.2-8.2)
== END | disposition home or self-care (01) ==
LOC: LABWHC1 07:50
PROVIDERS: ATTEND Internal Medicine Interventional Cardiology
DX: E78.2 Mixed hyperlipidemia (principal)
CPT/HCPCS: 36415; 80053; 80061

== ENCOUNTER → 2024-03-24 | Outpatient (CLI) | payer MEDICARE, OTHER ==
--- NOTE | 2024-03-28 14:42 | CTL ---
EXAMINATION TYPE: CT Low Dose Lung DATE OF EXAM ORDERED: 03/24/2024 HISTORY: . Lung cancer screening CT DLP: 75.[address] CTDI: 2.1 mGy Automated exposure control for dose reduction was used. SCREENING VISIT: Initial COMPARISON: None TECHNIQUE: Low dose computed tomography scan was performed through the chest at 1 mm thick sections a nd reconstructed images in the coronal plane at [address] DIAGNOSTIC QUALITY: Satisfactory FINDINGS: LUNG NODULES: Present, detailed below: 1. A 2.0 x 1.1 cm densities at the left apex. Nodule scarring can be considered. 2. There is a 0.4 cm punctate nodularity peripheral right lung this may be a vascular malformation. S eries 4 image 220 LUNGS: COPD: Severity: None Fibrosis: Severity: May be some mild scarring at the right apex Lymph nodes: None Other findings: None RIGHT PLEURAL SPACE: Effusion: None Calcification: None Thickening: None Pneumothorax: None LEFT PLEURAL SPACE: Effusion: None Calcification: None Thickening: None Pneumothorax: None HEART: Other: Ascending thoracic aorta at the level the main pulmonary artery measures 3.2 cm. The main pul monary artery at the bifurcation measures 2.6 cm. Heart Size: Normal Coronary calcification: None Pericardial effusion: None OTHER FINDINGS: Upper abdomen: Normal Bony thorax: Normal Supraclavicular region: Normal IMPRESSION: 1. Suspicious finding right apex FOLLOW UP CT CHEST RECOMMENDATION: Follow up PET/CT is recommended CT LUNG RAD: Lung-Rad 4A [facility] Tressa Nguyễn, Workstation: [email or web address], 03/28/2024 2:40 PM
== END | disposition home or self-care (01) ==
LOC: RADCTMAIN 09:04
PROVIDERS: ATTEND Family Medicine
DX: Z12.2 Encounter for screening for malignant neoplasm of respiratory organs (principal); F17.210 Nicotine dependence, cigarettes, uncomplicated
CPT/HCPCS: 71271

== ENCOUNTER → 2024-05-09 | Outpatient (CLI) | payer MEDICARE, OTHER ==
--- NOTE | 2024-05-10 18:57 | CT ---
EXAMINATION TYPE: CT chest wo con DATE OF EXAM: 05/09/2024 COMPARISON: 03/24/2024 HISTORY: f/u pulmonary nodule. CT DLP: 243.1 mGycm, Automated exposure control for dose reduction was used. CONTRAST: Performed injected with 0 mL of Isovue 300. TECHNIQUE: Axial images were obtained at 5 mm thick sections. Reconstructed images are reviewed on [employer] computer in the coronal plane. FINDINGS: Portion of the thyroid visualized is normal. Apical scarring appears to be present. There is some increased density within the right apex measurin g 1.7 x 0.6 cm was present previously may be related to the apical scarring. Series 4 image 10. This area is smaller than the comparison measuring 2.0 x 1.1 cm. There is a 0.3 cm punctate density within the lateral right lung. Series 4 image 47. This is stable f rom comparison. No enlarged mediastinal or hilar adenopathy is evident. The ascending aorta diameter at the level o f the main pulmonary artery is 3.2 cm. The main pulmonary artery diameter at the bifurcation is 2.9 cm. Moderate coronary artery calcification is present. Limited CT sections are obtained through the upper abdomen. Abdomen is essentially unremarkable. IMPRESSION: 1. Diminished size of a masslike density at the right apex. 2. Stable punctate peripheral nodule. 3. Recommend follow-up low-dose CT chest 11 months. [facility], , 05/10/2024 6:55 PM
== END | disposition home or self-care (01) ==
LOC: RADCTMAIN 17:15
PROVIDERS: ATTEND Family Medicine
DX: J98.4 Other disorders of lung (principal); R91.1 Solitary pulmonary nodule
CPT/HCPCS: 71250